=== PATIENT | male | born 1950 | race Caucasian/White ===

== ENCOUNTER 2021-02-18 13:32 | Inpatient (IN) | payer MEDICARE, SELFPAY ==
[~2021-02-18] VITALS: Ht 185.4 cm; Wt 82.0 kg
[2021-02-18] VITALS (8 sets, daily range): BP systolic 92–134; BP diastolic 50–82
[2021-02-18] MEDS ORDERED: HEPARIN SOD (PORCINE) 5000UNITS/ML 1ML VIAL/SYRINGE SC SCH (16:50)
[2021-02-18] MEDS ORDERED: NS 1,000 ML IV ONE (17:15)
--- NOTE | 2021-02-18 17:17 | HPEPDOC ---
General Date of Admission Feb 18, 2021 at 15:38 Date of Service: Feb 18, 2021 Chief Complaint The patient is a 70-year-old male admitted with a reason for visit of Sepsis. Source: Patient Exam Limitations: Mild cognitive slowing History of Present Illness Patient 70 years old male with past medical history of atrial fibrillation, CVA, right-sided weakness, hypothyroidism, NSTEMI was transferred from [facility] with hypotension and leukocytosis. Patient is very poor historian. Ac cording to records from the [facility] patient recently had pneumonia secondary to Covid, he developed CVA with right partial hemiplegia, also patient was found to have pulmonary emboli. The records which was sent for from the [facility] did not have any discharge summary or H&P, only very limited information for blood test and PT/OT evaluation. When I saw the patient his heart rate was 65, blood pressure was 100/50. He denied any fever or chills. Earlier today patient was found to have leukocytosis of 36 with lactic acid of 1.6 Home Medications Scheduled Apixaban (Eliquis) 5 Mg Tablet, 5 MG PO BID, (Reported) Aspirin (Aspirin) 81 Mg Tab.chew, 81 MG PO DAILY, (Reported) Atorvastatin Calcium (Atorvastatin Calcium) 40 Mg Tablet, 40 MG PO QHS, (Repor sam) Cholecalciferol (Vitamin D3) (Vitamin D3) 25 Mcg Tablet, 1,000 UNITS PO DAILY, (Reported) Levothyroxine Sodium (Levothyroxine Sodium) 75 Mcg Tablet, 75 MCG PO QAM, (Reported) Lisinopril (Lisinopril) 5 Mg Tablet, 5 MG PO QHS, (Reported) Loratadine (Loratadine) 10 Mg Tablet, 10 MG PO DAILY, (Reported) Metoprolol Succinate (Metoprolol Succinate) 25 Mg Tab.er.24h, 12.5 MG PO DAILY, (Reported) Pantoprazole Sodium (Pantoprazole Sodium) 40 Mg Tablet.dr, 40 MG PO DAILY, (Reported) Allergies Coded Allergies: Penicillins (Verified Allergy, Severe, THROAT CLOSES, 02/18/21) HAS RECEIVED CEPHALOSPORINS w/o PROBLEM Past Medical History Medical History atrial fibrillation, CVA, right-sided weakness, hypothyroidism, NSTEMI Family History I personally reviewed family history and found not pertinent Social History * Smoker: Denies Alcohol: Denies Drugs: denies A-FIB/CHADSVASC A-FIB History Current/History of A-Fib/PAF?: Yes Current PO Anticoag Therapy: Yes Review of Systems Constitutional: Reports: Fatigue; Denies: Chills, Fever Eyes: Denies: Pain ENT: Denies: Head Aches Skin: Denies: Rash Pulmonary: Reports: Dyspnea; Denies: Cough Cardiovascular: Denies: Chest Pain Gastrointestinal: Denies: Nausea, Vomiting Genitourinary: Denies: Dysuria Hematologic: Denies: Bruising Endocrine: Denies: Polydipsia Musculoskeletal: Denies: Neck Pain Neurological: Denies: Weakness Psych: Reports: Mood Normal, Memory Issues Physical Examination General Exam: Positive: Alert, Cooperative Eye Exam: Positive: PERRLA ENT Exam: Positive: Atraumatic Neck Exam: Positive: Supple; Negative: JVD Chest Exam: Positive: Clear to auscultation Heart Exam: Positive: Irregular Rhythm Telemetry: Positive: Atrial fibrillation Extremity Exam: Negative: Clubbing Skin Exam: Positive: Nl turgor and temperature Neuro Exam: Positive: Normal Gait Psych Exam: Negative: Memory Intact Vital Signs HR 65 Assessment/Plan Patient 70 years old male with past medical history of atrial fibrillation, CVA, right-sided weakness, hypothyroidism, NSTEMI was transferred from [facility] with hypotension and leukocytosis. Patient is very poor historian. According to records from the [facility] patient recently had pneumonia secondary to Covid, he developed CVA with right partial hemiplegia, also patient was found to have pulmonary emboli. The records which was sent for from the [facility] did not have any discharge summary or H&P, only very limited information for blood test and PT/OT evaluation. When I saw the patient his heart rate was 65, blood pressure was 100/50. He denied any fever or chills. Earlier today patient was found to have leukocytosis of 36 with lactic acid of 1.6 Problems (1) Sepsis Status: Acute Problem Text: Patient developed hypotension, with leukocytosis of 36 Unknown etiology CBC, BMP, lactic acid, procalcitonin We will start broad-spectrum antibiotics ceftriaxone and doxycycline CTA chest, CT abdomen/pelvis IV fluid (2) Pulmonary emboli Status: Chronic Problem Text: Patient has documented history of recent pulmonary emboli however I did not find in the records from previous hospital any details of this event Patient was on Eliquis and we continued it I will contact [facility] tomorrow in order to obtain more detailed records (3) Atrial fibrillation Status: Chronic Problem Text: Heart rate under control We continue oral targeted anticoagulation (4) Hypothyroidism Status: Chronic Problem Text: Continue levothyroxine (5) History of CVA (cerebrovascular accident) Status: Chronic Problem Text: Continue statin and aspirin PT/OT (6) History of coronary artery disease Status: Chronic Problem Text: Patient denied any chest pain, ordered EKG Continue metoprolol, aspirin and statin Plan / VTE VTE Prophylaxis Ordered?: Yes JON DUKES DO Feb 18, 2021 17:17
[2021-02-18] MEDS ORDERED: PANT40TA29 PO (17:26)
[2021-02-18] MEDS ORDERED: ELIQ5TAB PO (17:26)
[2021-02-18] MEDS ORDERED: LISI-898 PO (17:26)
[2021-02-18] MEDS ORDERED: LEVO75TA4 PO (17:26)
[2021-02-18] MEDS ORDERED: ATOR40TA75 PO (17:26)
[2021-02-18] MEDS ORDERED: D31000TA PO (17:26)
[2021-02-18] MEDS ORDERED: LORA-674 PO (17:26)
[2021-02-18] MEDS ORDERED: METO1TAB32 PO (17:26)
[2021-02-18] MEDS ORDERED: ASPI81CH33 PO (17:27)
[2021-02-18] MEDS ORDERED: HOME MED LIST COMPLETE! XX SCH (17:30)
[2021-02-18] MEDS ORDERED: ISOVUE-370 76% 100ML VIAL As Ordered ONE (18:05)
[2021-02-18 18:08] LABS: HEMATOCRIT 37.3 % (42.0-52.0); HEMOGLOBIN 11.6 g/dl (13.5-17.5); MEAN CORPUSCULAR HGB CONC 31.1 g/dl (32.0-36.5); MEAN CORPUSCULAR VOLUME 90.1 fl (80.0-96.0); PLATELET COUNT, AUTOMATED 287 10^3/uL (150-450); RED BLOOD COUNT 4.14 10^6/uL (4.30-6.10)
[2021-02-18 18:09] LABS: WHITE BLOOD COUNT 31.5 10^3/uL (4.0-10.0)
[2021-02-18 18:30] LABS: ALT/SGPT 22 U/L (12-78); BILIRUBIN,TOTAL 0.8 MG/DL (0.2-1.0); BLOOD UREA NITROGEN 10 MG/DL (7-18); CARBON DIOXIDE LEVEL 28 MEQ/L (21-32); CHLORIDE LEVEL 108 MEQ/L (98-107); CREATININE FOR GFR 0.65 MG/DL (0.70-1.30); GLOMERULAR FILTRATION RATE > 60.0 (>42); GLUCOSE, FASTING 89 MG/DL (70-100); POTASSIUM SERUM 3.9 MEQ/L (3.5-5.1); SODIUM LEVEL 139 MEQ/L (136-145); TOTAL PROTEIN 6.5 GM/DL (6.4-8.2)
--- NOTE | 2021-02-18 18:39 | REPVR ---
PROCEDURE INFORMATION: Exam: CTA Chest With Contrast Exam date and time: 02/18/2021 6:10 PM Age: 70 years old Clinical indication: Shortness of breath; Additional info: Pe TECHNIQUE: Imaging protocol: Computed tomographic angiography of the chest with contrast. 3D rendering (Not supervised by radiologist): MIP and/or 3D reconstructed images were created by the technologist. Radiation optimization: All CT scans at this facility use at least one of these dose optimization techniques: automated exposure control; mA and/or kV adjustment per patient size (includes targeted exams where dose is matched to clinical indication); or iterative reconstruction. Contrast material: ISOVUE 370; Contrast volume: 100 ml; Contrast route: INTRAVENOUS (IV); COMPARISON: No relevant prior studies available. FINDINGS: Pulmonary arteries: There is enlargement of the central pulmonary arteries, findings which can be associated with pulmonary arterial hypertension which should be correlated clinically. Contrast density within the pulmonary arteries is insufficient in order to exclude the presence of small peripheral pulmonary emboli. That said, there are no large or medium-sized vessel emboli visualized. Aorta: There is mild atherosclerosis in the thoracic aorta. There is no aortic dissection or aneurysm. Lungs: Bilateral coarse parenchymal opacities may represent atelectasis and/or chronic fibrotic change. No segmental or lobar infiltrates. Pleural spaces: Unremarkable. No pneumothorax. No pleural effusion. Heart: There is mild atherosclerotic calcification of the coronary arteries. Mediastinal space: A small to moderate sized hiatal hernia is present. Lymph nodes: Unremarkable. No enlarged lymph nodes. Spleen: Large hypodensities demonstrated in the lateral aspect of the spleen not fully evaluated on this examination dedicated to the thorax. Finding may represent a splenic infarct and should be correlated clinically. Bones/joints: Unremarkable. No acute fracture. Soft tissues: Unremarkable. IMPRESSION: 1. Bilateral coarse parenchymal opacities may represent atelectasis and/or chronic fibrotic change. No segmental or lobar infiltrates. 2. There is no aortic dissection or aneurysm. 3. There is enlargement of the central pulmonary arteries, findings which can be associated with pulmonary arterial hypertension which should be correlated clinically. 4. Contrast density within the pulmonary arteries is insufficient in order to exclude the presence of small peripheral pulmonary emboli. That said, there are no large or medium-sized vessel emboli visualized. 5. Large hypodensities demonstrated in the lateral aspect of the spleen not fully evaluated on this examination dedicated to the thorax. Finding may represent a splenic infarct and should be correlated clinically. 6. A small to moderate sized hiatal hernia is present. Electronically signed by: Moses Malhotra On 02/18/2021 18:39:14 PM
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
[2021-02-18] MEDS: NS 1,000 ML IV SCH (19:30)
[2021-02-18 19:40] LABS: INR 1.57; PROTHROMBIN TIME 19.2 SECONDS (12.7-14.5)
[2021-02-18 20:05] LABS: T UPTAKE 34 % (33-40); THYROXINE (T4) 11.7 UG/DL (4.5-12.0)
--- NOTE | 2021-02-18 20:36 | REPVR ---
PROCEDURE INFORMATION: Exam: US Abdomen; Limited Exam date and time: 02/18/2021 8:21 PM Age: 70 years old Clinical indication: Abnormal findings; Abnormal radiologic finding of the abdomen; Radiologic exam and body structure: CT; Additional info: Splenic infarct vs. Hematoma TECHNIQUE: Imaging protocol: US abdomen. Real time ultrasound with image documentation. Limited exam focused on the region of clinical interest. COMPARISON: CT ABD/PEL W/IV CONTRAST ONLY 02/18/2021 6:09 PM FINDINGS: Left kidney: Left kidney measures 10.1 x 4.9 x 4.4 cm. Spleen: Spleen measures 9.9 x 3.9 x 8.8 cm. There is a large perisplenic hypoechoic crescent-shaped focus measuring 7.2 x 2.6 x 9.1 cm. Differential includes a splenic infarct or a subcapsular fluid collection compressing the spleen. IMPRESSION: Spleen measures 9.9 x 3.9 x 8.8 cm. There is a large perisplenic hypoechoic crescent-shaped focus measuring 7.2 x 2.6 x 9.1 cm. Differential includes a splenic infarct or a subcapsular fluid collection compressing the spleen. Also to be considered is splenic neoplasm considered less likely based on appearance. Electronically signed by: Moses Malhotra On 02/18/2021 20:36:05 PM
[2021-02-18] MEDS: DOXYCYCLINE HYCLATE 100 MG in D5W MINI-BAG PLUS 100 ML IV SCH (21:26)
[2021-02-18] MEDS: ATORVASTATIN 20 MG TAB PO SCH (21:26)
[2021-02-18] MEDS: cefTRIAXone SOD 2 GM in D5W MINI-BAG PLUS 50 ML IV SCH (22:38)
[2021-02-18 22:40] LABS: HEMATOCRIT 35.5 % (42.0-52.0)
[2021-02-19] VITALS (11 sets, daily range): BP systolic 95–131; BP diastolic 52–76
[2021-02-19 04:59] LABS: HEMATOCRIT 34.5 % (42.0-52.0); HEMOGLOBIN 10.7 g/dl (13.5-17.5); MEAN CORPUSCULAR HEMOGLOBIN 27.6 pg (27.0-33.0); MEAN CORPUSCULAR VOLUME 89.1 fl (80.0-96.0); PLATELET COUNT, AUTOMATED 254 10^3/uL (150-450); RED BLOOD COUNT 3.87 10^6/uL (4.30-6.10); WHITE BLOOD COUNT 24.3 10^3/uL (4.0-10.0)
[2021-02-19] MEDS: LEVOTHYROXINE 75MCG TABLET (0.075MG) PO SCH (05:02)
[2021-02-19] MEDS: NS 1,000 ML IV SCH (05:03)
[2021-02-19 05:10] LABS: INR 1.41; PROTHROMBIN TIME 17.7 SECONDS (12.7-14.5)
[2021-02-19 05:29] LABS: ALBUMIN 1.6 GM/DL (3.2-5.2); ALT/SGPT 15 U/L (12-78); BILIRUBIN,TOTAL 0.5 MG/DL (0.2-1.0); BLOOD UREA NITROGEN 6 MG/DL (7-18); CALCIUM LEVEL 8.4 MG/DL (8.8-10.2); CARBON DIOXIDE LEVEL 28 MEQ/L (21-32); CHLORIDE LEVEL 109 MEQ/L (98-107); GLOMERULAR FILTRATION RATE > 60.0 (>42); GLUCOSE, FASTING 84 MG/DL (70-100); MAGNESIUM LEVEL 1.5 MG/DL (1.8-2.4); POTASSIUM SERUM 3.7 MEQ/L (3.5-5.1); SODIUM LEVEL 140 MEQ/L (136-145); TOTAL PROTEIN 6.3 GM/DL (6.4-8.2)
--- NOTE | 2021-02-19 07:08 | ECHO ---
ECHOCARDIOGRAM DATE OF PROCEDURE: 02/18/2021 Age: Gender: M Height: 185 cm Weight: 82 kg REFERRING PHYSICIAN: Dr. Navneet Penyn INDICATION: Acute stroke MEASUREMENTS: 2D Measurements: Aortic annulus: 1.9 cm Interventricular septum: 1.20 cm Posterior wall: 1.23 cm Left ventricle diastole: 4.7 cm Aortic root: 3.2 cm Left atrium: 3.7 cm Left atrial volume index: 28 Doppler Measurements: No aortic stenosis or regurgitation Aortic valve velocity: 123 cm/s LVOT velocity: 115 cm/s LVOT VTI: 21.1 cm No mitral regurgitation No mitral stenosis Mitral E velocity: 96.4 cm/s Mitral A velocity: 110 cm/s Mitral deceleration time: 251 m/s No tricuspid regurgitation No pulmonic regurgitation Pulmonary acceleration time: 160 ms MITRAL ANNULAR TISSUE DOPPLER E prime septal: 9.7 cm/s E prime lateral: 9.7 cm/s DESCRIPTION: Rhythm was sinus. The study was performed with the patient supine. This was a moderately technically difficult echocardiogram. No pericardial effusion. Bubble study was performed with a belly push. CONCLUSIONS: 1. Bubble study was negative for detection of right heart to left heart intracardiac shunting or intrapulmonary shunting; however, the bubble study was of relatively poor quality. 2. Mild concentric left ventricular hypertrophy. Normal regional left ventricle (LV) wall motion and wall thickening. Normal left ventricular (LV) systolic function. Left ventricular ejection fraction (LVEF) 65-70% by visual assessment. Grade 1 left ventricular (LV) diastolic dysfunction. 3. Moderate mitral annular calcification. No mitral regurgitation or stenosis. 4. Mild aortic valve sclerosis of A3-cuspid aortic valve. No aortic regurgitation. 5. Normal right ventricle size and systolic function. 6. Otherwise, normal-appearing echocardiogram and Doppler findings.
[2021-02-19] MEDS ORDERED: MAG SULF 1GM/100ML (MAG RUN) 1 GM in IV 1 EA IV ONE (09:00)
[2021-02-19] MEDS: PANTOPRAZOLE 40MG TAB (PROTONIX) PO SCH (09:08)
[2021-02-19] MEDS: LORATADINE 10 MG TAB PO SCH (09:08)
[2021-02-19] MEDS: VITAMIN D 1,000 INTERNATIONAL UNITS TABLET PO SCH (09:08)
[2021-02-19] MEDS: DOXYCYCLINE HYCLATE 100 MG in D5W MINI-BAG PLUS 100 ML IV SCH ×2 (09:08→21:01)
[2021-02-19] MEDS: ASPIRIN 81 MG CHEW TABLET PO SCH (09:08)
[2021-02-19] MEDS: METOPROLOL SUCC *XL* 12.5MG PER 1/2 TAB (TopROL *XL*) PO SCH (09:10)
[2021-02-19] MEDS ORDERED: NS 1,000 ML IV ONE (09:20)
--- NOTE | 2021-02-19 09:32 | CR.PDOC ---
General Date of Consultation: Feb 19, [address] Bello Reason for consultation. Splenic infarct HISTORY OF PRESENT ILLNESS: The patient is a 70-year-old male transferred from outside hospital to hospitalist with sepsis, hypotension and leukocytosis. When the patient was admitted yesterday, he had a difficult time providing history however according to records the patient had recently been hospitalized for pneumonia secondary to Covid, developed CVA with right partial hemiplegia and found to have pulmonary emboli. Imaging also included CT abdomen/pelvis indicating hypodensity at the lateral aspect of the spleen, possibly representing large splenic infarct or fluid collection. General surgery was co nsulted regarding splenic infarct. Currently, the patient denies any abdominal pain, distention or flank pain. The patient has been afebrile. Denies any chest pain or pleuritic pain. Denies nausea or vomiting. States bowel movements have been normal. Denies any urinary complaints. ALLERGIES: Please see below. HOME MEDICATIONS: Please see below. PMH/PSH: Atrial fibrillation, on Eliquis Recent history of pulmonary emboli CVA with right-sided weakness Hypothyroidism CAD/history of [place] Patient states history of splenic infarct SOCIAL HISTORY: Non-smoker REVIEW OF SYSTEMS: As noted in HPI otherwise 10 point review of systems negative. PHYSICAL EXAMINATION: VITAL SIGNS: Please see below. GENERAL APPEARANCE: Sitting up in bed, no acute distress HEENT: MMM RESPIRATORY: No wheezing. CARDIOVASCULAR: Irregularly irregular. no TTP flank or chest wall areas. ABDOMEN: Soft, nontender, nondistended. no flank pain. EXTREMITIES: No edema. LABORATORY DATA: WBC 24.3, this is decreased from 31.5 on admission. Hemoglobin 10.7 compared with 11.0 last evening. Platelets 254 Lactic acid last evening 1.3 UA positive WBC, blood, LE. UC pending BC x 2 pending. Imaging. CTA chest IMPRESSION: 1. Bilateral coarse parenchymal opacities may represent atelectasis and/or chronic fibrotic change. No segmental or lobar infiltrates. 2. There is no aortic dissection or aneurysm. 3. There is enlargement of the central pulmonary arteries, findings which can be associated with pulmonary arterial hypertension which should be correlated clinically. 4. Contrast density within the pulmonary arteries is insufficient in order to exclude the presence of small peripheral pulmonary emboli. That said, there are no large or medium-sized vessel emboli visualized. 5. Large hypodensities demonstrated in the lateral aspect of the spleen not fully evaluated on this examination dedicated to the thorax. Finding may represent a splenic infarct and should be correlated clinically. 6. A small to moderate sized hiatal hernia is present. Electronically signed by: Moses Malhotra On 02/18/2021 18:39:[address] abdomen/pelvis IMPRESSION: 1. Large hypodensity demonstrated in the lateral aspect of the spleen. Finding may represent a large splenic infarct or subcapsular fluid collection. Neoplasm not excluded. Splenic parenchyma is not well opacified on this scan. 2. A small to moderate hiatal hernia is present. 3. Minimal perivesicular inflammatory changes. Clinical correlation to exclude cystitis suggested. Electronically signed by: Moses Malhotra On 02/18/2021 18:43:44 PM Abdominal ultrasound IMPRESSION: Spleen measures 9.9 x 3.9 x 8.8 cm. There is a large perisplenic hypoechoic crescent-shaped focus measuring 7.2 x 2.6 x 9.1 cm. Differential includes a splenic infarct or a subcapsular fluid collection compressing the spleen. Also to be considered is splenic neoplasm considered less likely based on appearance. Electronically signed by: Moses Malhotra On 02/18/2021 20:36:05 PM TTE pending. 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 The patient is reviewed and examined as per Dr. Bello this morning. The patient reports he previously had splenic infarct, was hospitalized at another location, however the patient cannot recall where. The patient states he has had imaging done at [facility] in [place] in the past. He cannot recall how long ago he had the splenic infarct. This correlates with the patient not reporting any pain or symptoms suggestive of acute splenic infarct. Nursing will discuss with the patient's family member and we will try to obtain prior records and/or imaging to confirm this. Dr Bello discussed with hospitalistVINICIO to restart anticoagulation. Regular diet. Continue to monitor Vital Signs/I&O Vital Signs Date Time Temp Pulse Resp B/P (MAP) Pulse Ox O2 Delivery O2 Flow Rate FiO2 02/19/21 08:00 98.2 81 18 101/52 (68) 96 Nasal Cannula 2.0 I&O- Last 24 Hours up to 6 AM 02/19/21 06:00 Intake Total 2200 ml Output Total 600 ml Balance 1600 ml Laboratory Data Labs 24H Laboratory Tests 2 02/18/21 17:21: Methicillin-Resist S.aureus DNA PCR NOT DETECTED 02/18/21 17:48: Nucleated Red Blood Cells % (auto) 0.0, Anion Gap 3L, Glomerular Filtration Rate > 60.0, Lactic Acid Level 2.2*H, Calcium Level 8.0L, Total Bilirubin 0.8, Aspartate Amino Transf (AST/SGOT) 36, Alanine Aminotransferase (ALT/SGPT) 22, Alkaline Phosphatase 76, Total Protein 6.5, Albumin 2.0L, Albumin/Globulin Ratio 0.4, Procalcitonin 0.33, Thyroid Stimulating Hormone (TSH) 4.060H, Free Thyrox ine Index 4.0H, Thyroxine (T4) 11.7, Triiodothyronine (T3) Uptake 34 02/18/21 19:15: Prothrombin Time 19.2H, Prothromb Time International Ratio 1.57 02/18/21 20:10: Urine Color YELLOW, Urine Appearance HAZY, Urine pH 6.0, Urine Specific [place] 1.015, Urine Protein NEGATIVE, Urine Glucose (UA) NEGATIVE, Urine Ketones NEGATIVE, Urine Blood 1+H, Urine Nitrite NEGATIVE, Urine Bilirubin NEGATIVE, Urine Urobilinogen 0.2, Urine Leukocyte Esterase 3+H, Urine WBC (Auto) 94H, Urine RBC (Auto) 5H, Urine Hyaline Casts (Auto) 0, Urine Bacteria (Auto) NEGATIVE, Urine Squamous Epithelial Cells 0, Urine Sperm (Auto) 02/18/21 22:28: Lactic Acid Followup at 4 Hours 1.3 02/19/21 04:49: Nucleated Red Blood Cells % (auto) 0.0, Prothrombin Time 17.7H, Prothromb Time International Ratio 1.41, Anion Gap 3L, Glomerular Filtration Rate > 60.0, Calcium Level 8.4L, Magnesium Level 1.5L, Total Bilirubin 0.5, Aspartate Amino Transf (AST/SGOT) 22, Alanine Aminotransferase (ALT/SGPT) 15, Alkaline Phosphatase 75, Total Protein 6.3L, Albumin 1.6L, Albumin/Globulin Ratio 0.3 CBC/BMP Laboratory Tests 02/18/21 17:48 02/18/21 22:28 02/19/21 04:49 Microbiology Microbiology 02/18/21 Urine Culture, Received Pending 02/18/21 Blood Culture, Received Pending 02/18/21 Blood Culture, Received Pending Allergies Coded Allergies: Penicillins (Verified Allergy, Severe, THROAT CLOSES, 02/18/21) HAS RECEIVED CEPHALOSPORINS w/o PROBLEM Home Medications Scheduled Apixaban (Eliquis) 5 Mg Tablet, 5 MG PO BID, (Reported) Aspirin (Aspirin) 81 Mg Tab.chew, 81 MG PO DAILY, (Reported) Atorvastatin Calcium (Atorvastatin Calcium) 40 Mg Tablet, 40 MG PO QHS, (Reported) Cholecalciferol (Vitamin D3) (Vitamin D3) 25 Mcg Tablet, 1,000 UNITS PO DAILY, (Reported) Levothyroxine Sodium (Levothyroxine Sodium) 75 Mcg Tablet, 75 MCG PO QAM, (Reported) Lisinopril (Lisinopril) 5 Mg Tablet, 5 MG PO QHS, (Reported) Loratadine (Loratadine) 10 Mg Tablet, 10 MG PO DAILY, (Reported) Metoprolol Succinate (Metoprolol Succinate) 25 Mg Tab.er.24h, 12.5 MG PO DAILY, (Reported) Pantoprazole Sodium (Pantoprazole Sodium) 40 Mg Tablet.dr, 40 MG PO DAILY, (Reported) Merle Barber Feb 19, 2021 09:03
--- NOTE | 2021-02-19 10:08 | ECGEPIP ---
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
[2021-02-19 11:12] LABS: HEMOGLOBIN 11.3 g/dl (13.5-17.5)
--- NOTE | 2021-02-19 11:49 | IPNPDOC ---
Text Note Date of Service The patient was seen on 02/19/21. NOTE Subjective: Patient stated that he is doing much better in the morning. He was alert, awake and oriented. He told me that he would like to eat. No fever or chills reported. I talked to his sister Ailin Teixeira [phone] and updated her Objective: GENERAL APPEARANCE: NAD HEENT: no scleral icterus, no JVD, EOMI CARDIOVASCULAR: Irregularly irregular LUNGS: CTA ABDOMEN: soft & not tender w palpation MUSCULOSKELETAL: no cyanosis, no swelling INTEGUMENT: no generalized pallor NEUROLOGICAL: cranial nerve function from 2-12 intact, follows commands, speech not dysarthric Assessment/Plan Patient 70 years old male with past medical history of atrial fibrillation, CVA, right-sided weakness, hypothyroidism, NSTEMI was transferred from [facility] with hypotension and leukocytosis. Patient is very poor historian. According to records from the [facility] patient recently had pneumonia secondary to Covid, he developed CVA with right partial hemiplegia, also patient was found to have pulmonary emboli. The records which was sent for from the [facility] did not have any discharge summary or H&P, only very limited information for blood test and PT/OT evaluation. When I saw the patient his heart rate was 65, blood pressure was 100/50. He denied any fever or chills. Earlier today patient was found to have leukocytosis of 36 with lactic acid of 1.6 Problems (1) Sepsis Resolved. Unknown etiology. Patient denied any cough, sputum, fever, chills, abdominal pain, diarrhea or dysuria. Await blood culture, urine culture UA showed pyuria, but patient does not have dysuria CT chest did not show any acute pulmonary infiltrate. CT abdomen and pelvis showed Large hypodensity demonstrated in the lateral aspect of the spleen. Finding may represent a large splenic infarct or subcapsular fluid collection. 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 There is question about timeline of this infarct. We will try to obtain the records from [facility] in [place] Continue broad-spectrum antibiotics empirically day 1 (2) Pulmonary emboli Patient has documented history of recent pulmonary emboli however I did not find in the records from previous hospital any details of this event Patient was on Eliquis and we continued it Await documentation from [facility] (3) Atrial fibrillation Heart rate under control We continue oral targeted anticoagulation Continue metoprolol (4) Hypothyroidism Continue levothyroxine (5) History of CVA (cerebrovascular accident) Continue statin and aspirin PT/OT (6) History of coronary artery disease Patient denied any chest pain, ordered EKG Continue metoprolol, aspirin and statin Splenic infarct We continue to monitor H&H and blood pressure No any signs of symptoms of acute bleeding. There is a question about timeline of it. Ultrasound showed There is a large perisplenic hypoechoic crescent-shaped focus measuring 7.2 x 2.6 x 9.1 cm. Differential includes a splenic infarct or a subcapsular fluid collection compressing the spleen. Also to be considered is splenic neoplasm considered less likely based on appearance. Surgical team consulted patient, no any indication for surgical intervention VS,Solomone, I+O VS, [place], I+O Laboratory Tests 02/18/21 17:48 02/18/21 22:28 02/19/21 04:49 02/19/21 10:55 Vital Signs Date Time Temp Pulse Resp B/P (MAP) Pulse Ox O2 Delivery O2 Flow Rate FiO2 02/19/21 09:15 92 Room Air 02/19/21 09:10 102 101/57 02/19/21 09:00 2.0 02/19/21 08:00 98.2 18 I&O- Last 24 Hours up to 6 AM 02/19/21 06:00 Intake Total 2200 ml Output Total 600 ml Balance 1600 ml JON DUKES DO Feb 19, 2021 11:48
[2021-02-19] MEDS: ACETAMINOPHEN TAB 650MG DOSE (2X325MG) PO PRN ×2 (13:40→21:01)
[2021-02-19 17:16] LABS: HEMATOCRIT 33.5 % (42.0-52.0); HEMOGLOBIN 10.3 g/dl (13.5-17.5)
[2021-02-19] MEDS: APIXABAN 5 MG TAB (ELIQUIS) PO SCH (21:00)
[2021-02-19] MEDS: ATORVASTATIN 20 MG TAB PO SCH (21:00)
[2021-02-19] MEDS: cefTRIAXone SOD 2 GM in D5W MINI-BAG PLUS 50 ML IV SCH (22:32)
[2021-02-19 23:28] LABS: HEMATOCRIT 32.4 % (42.0-52.0); HEMOGLOBIN 10.2 g/dl (13.5-17.5)
[2021-02-20] MEDS: LEVOTHYROXINE 75MCG TABLET (0.075MG) PO SCH (05:34)
[2021-02-20 05:50] VITALS: BP 132/77
[2021-02-20 06:42] LABS: HEMATOCRIT 35.1 % (42.0-52.0); HEMOGLOBIN 11.1 g/dl (13.5-17.5)
[2021-02-20 06:54] LABS: INR 1.41; PROTHROMBIN TIME 17.7 SECONDS (12.7-14.5)
[2021-02-20] MEDS: LORATADINE 10 MG TAB PO SCH (08:30)
[2021-02-20] MEDS: DOXYCYCLINE HYCLATE 100 MG in D5W MINI-BAG PLUS 100 ML IV SCH (08:30)
[2021-02-20] MEDS: APIXABAN 5 MG TAB (ELIQUIS) PO SCH ×2 (08:30→20:10)
[2021-02-20] MEDS: PANTOPRAZOLE 40MG TAB (PROTONIX) PO SCH (08:30)
[2021-02-20] MEDS: ASPIRIN 81 MG CHEW TABLET PO SCH (08:30)
[2021-02-20] MEDS: VITAMIN D 1,000 INTERNATIONAL UNITS TABLET PO SCH (08:30)
[2021-02-20] MEDS: METOPROLOL SUCC *XL* 12.5MG PER 1/2 TAB (TopROL *XL*) PO SCH (08:32)
[2021-02-20 08:51] LABS: BASO # 0.1 10^3/uL (0.0-0.2); BASO % 0.5 % (0.0-1.0); EOS # 0.7 10^3/uL (0.0-0.5); EOS % 3.5 % (0.0-3.0); HEMATOCRIT 35.4 % (42.0-52.0); LYMPH # 1.7 10^3/uL (1.5-5.0); LYMPH % 8.6 % (24.0-44.0); MEAN CORPUSCULAR HEMOGLOBIN 27.3 pg (27.0-33.0); MEAN CORPUSCULAR HGB CONC 31.1 g/dl (32.0-36.5); MEAN CORPUSCULAR VOLUME 87.8 fl (80.0-96.0); MONO # 0.9 10^3/uL (0.0-0.8); MONO % 4.5 % (2.0-8.0); NEUTROPHILS # 16.2 10^3/uL (1.5-8.5); NEUTROPHILS % 82.3 % (36.0-66.0); PLATELET COUNT, AUTOMATED 288 10^3/uL (150-450); RED BLOOD COUNT 4.03 10^6/uL (4.30-6.10); WHITE BLOOD COUNT 19.6 10^3/uL (4.0-10.0)
[2021-02-20 09:17] LABS: ALBUMIN 1.8 GM/DL (3.2-5.2); ALT/SGPT 16 U/L (12-78); BILIRUBIN,TOTAL 0.5 MG/DL (0.2-1.0); BLOOD UREA NITROGEN 5 MG/DL (7-18); CALCIUM LEVEL 8.6 MG/DL (8.8-10.2); CARBON DIOXIDE LEVEL 27 MEQ/L (21-32); CHLORIDE LEVEL 108 MEQ/L (98-107); CREATININE FOR GFR 0.44 MG/DL (0.70-1.30); GLOMERULAR FILTRATION RATE > 60.0 (>42); GLUCOSE, FASTING 83 MG/DL (70-100); POTASSIUM SERUM 3.8 MEQ/L (3.5-5.1); SODIUM LEVEL 142 MEQ/L (136-145); TOTAL PROTEIN 6.4 GM/DL (6.4-8.2)
[2021-02-20 11:16] LABS: HEMATOCRIT 39.4 % (42.0-52.0)
--- NOTE | 2021-02-20 13:37 | IPNPDOC ---
Text Note Date of Service The patient was seen on 02/20/21. NOTE Subjective: Patient stated that he feels better today. No fever or chills Objective: GENERAL APPEARANCE: NAD HEENT: no scleral icterus, no JVD, EOMI CARDIOVASCULAR: Irregularly irregular LUNGS: CTA ABDOMEN: soft & not tender w palpation MUSCULOSKELETAL: no cyanosis, no swelling INTEGUMENT: no generalized pallor NEUROLOGICAL: cranial nerve function from 2-12 intact, follows commands, speech not dysarthric Assessment/Plan Patient 70 years old male with past medical history of atrial fibrillation, CVA, right-sided weakness, hypothyroidism, NSTEMI was transferred from [facility] with hypotension and leukocytosis. Patient is very poor historian. According to records from the [facility] patient recently had pneumonia secondary to Covid, he developed CVA with right partial hemiplegia, also patient was found to have pulmonary emboli. The records which was sent for from the [facility] did not have any discharge summary or H&P, only very limited information for blood test and PT/OT evaluation. When I saw the patient his heart rate was 65, blood pressure was 100/50. He denied any fever or chills. Earlier today patient was found to have leukocytosis of 36 with lactic acid of 1.6 Problems (1) Sepsis Resolved. Unknown etiology. Patient denied any cough, sputum, fever, chills, abdominal pain, diarrhea or dysuria. blood culture, urine culture negative UA showed pyuria, but patient does not have dysuria CT chest did not show any acute pulmonary infiltrate. CT abdomen and pelvis showed Large hypodensity demonstrated in the lateral aspect of the spleen. Finding may represent a large splenic infarct or subcapsular fluid collection. 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 There is question about timeline of this infarct. We will try to obtain the records from [facility] in [place] Continue broad-spectrum antibiotics empirically day 2 Leukocytosis improved (2) Pulmonary emboli Patient has documented history of recent pulmonary emboli however I did not find in the records from previous hospital any details of this event Patient was on Eliquis and we continued it Await documentation from [facility] (3) Atrial fibrillation Heart rate under control We continue oral targeted anticoagulation Continue metoprolol (4) Hypothyroidism Continue levothyroxine (5) History of CVA (cerebrovascular accident) Continue statin and aspirin PT/OT (6) History of coronary artery disease Patient denied any chest pain, ordered EKG Continue metoprolol, aspirin and statin Splenic infarct We continue to monitor H&H and blood pressure No any signs of symptoms of acute bleeding. There is a question about timeline of it. Ultrasound showed There is a large perisplenic hypoechoic crescent-shaped focus measuring 7.2 x 2.6 x 9.1 cm. Differential includes a splenic infarct or a subca psular fluid collection compressing the spleen. Also to be considered is splenic neoplasm considered less likely based on appearance. Surgical team consulted patient, no any indication for surgical intervention We will continue to monitor level of hemoglobin. VS,Fishbone, I+O VS, Fishbone, I+O Laboratory Tests 02/19/21 16:50 02/19/21 23:20 02/20/21 06:20 02/20/21 08:28 02/20/21 10:59 Vital Signs Date Time Temp Pulse Resp B/P (MAP) Pulse Ox O2 Delivery O2 Flow Rate FiO2 02/20/21 08:32 87 136/73 02/20/21 05:50 98.6 16 93 Room Air 02/19/21 09:00 2.0 I&O- Last 24 Hours up to 6 AM 02/20/21 06:00 Intake Total 850 ml Output Total 1500 ml Balance -650 ml JON DUKES DO Feb 20, 2021 13:37
[2021-02-20 14:00] VITALS: BP 135/74
[2021-02-20 18:32] LABS: HEMATOCRIT 33.7 % (42.0-52.0); HEMOGLOBIN 10.8 g/dl (13.5-17.5)
[2021-02-20] MEDS: CEFEPIME HCL 1 GM in D5W MINI-BAG PLUS 50 ML IV SCH (18:42)
[2021-02-20] MEDS: ATORVASTATIN 20 MG TAB PO SCH (20:10)
[2021-02-20 22:00] VITALS: BP 140/79
[2021-02-21] MEDS: CEFEPIME HCL 1 GM in D5W MINI-BAG PLUS 50 ML IV SCH ×2 (05:49→18:42)
[2021-02-21] MEDS: LEVOTHYROXINE 75MCG TABLET (0.075MG) PO SCH (05:49)
[2021-02-21 06:00] VITALS: BP 102/74
[2021-02-21 06:55] LABS: BASO # 0.1 10^3/uL (0.0-0.2); BASO % 0.8 % (0.0-1.0); EOS # 0.7 10^3/uL (0.0-0.5); EOS % 5.5 % (0.0-3.0); HEMATOCRIT 32.9 % (42.0-52.0); HEMOGLOBIN 10.3 g/dl (13.5-17.5); LYMPH # 2.1 10^3/uL (1.5-5.0); MEAN CORPUSCULAR HEMOGLOBIN 27.3 pg (27.0-33.0); MEAN CORPUSCULAR HGB CONC 31.3 g/dl (32.0-36.5); MEAN CORPUSCULAR VOLUME 87.3 fl (80.0-96.0); MONO # 0.8 10^3/uL (0.0-0.8); MONO % 6.8 % (2.0-8.0); NEUTROPHILS # 8.1 10^3/uL (1.5-8.5); NEUTROPHILS % 67.7 % (36.0-66.0); PLATELET COUNT, AUTOMATED 323 10^3/uL (150-450); RED BLOOD COUNT 3.77 10^6/uL (4.30-6.10); WHITE BLOOD COUNT 11.9 10^3/uL (4.0-10.0)
[2021-02-21 07:05] LABS: INR 1.53; PROTHROMBIN TIME 18.8 SECONDS (12.7-14.5)
[2021-02-21 07:19] LABS: ALBUMIN 1.7 GM/DL (3.2-5.2); ALT/SGPT 14 U/L (12-78); BILIRUBIN,TOTAL 0.5 MG/DL (0.2-1.0); BLOOD UREA NITROGEN 4 MG/DL (7-18); CALCIUM LEVEL 8.2 MG/DL (8.8-10.2); CARBON DIOXIDE LEVEL 28 MEQ/L (21-32); CHLORIDE LEVEL 108 MEQ/L (98-107); CREATININE FOR GFR 0.45 MG/DL (0.70-1.30); GLOMERULAR FILTRATION RATE > 60.0 (>42); GLUCOSE, FASTING 92 MG/DL (70-100); MAGNESIUM LEVEL 1.8 MG/DL (1.8-2.4); POTASSIUM SERUM 3.6 MEQ/L (3.5-5.1); SODIUM LEVEL 142 MEQ/L (136-145); TOTAL PROTEIN 6.2 GM/DL (6.4-8.2)
[2021-02-21] MEDS: METOPROLOL SUCC *XL* 12.5MG PER 1/2 TAB (TopROL *XL*) PO SCH (09:00)
[2021-02-21] MEDS: ASPIRIN 81 MG CHEW TABLET PO SCH (09:40)
[2021-02-21] MEDS: APIXABAN 5 MG TAB (ELIQUIS) PO SCH ×2 (09:40→21:28)
[2021-02-21] MEDS: LORATADINE 10 MG TAB PO SCH (09:40)
[2021-02-21] MEDS: VITAMIN D 1,000 INTERNATIONAL UNITS TABLET PO SCH (09:40)
[2021-02-21] MEDS: PANTOPRAZOLE 40MG TAB (PROTONIX) PO SCH (09:40)
--- NOTE | 2021-02-21 12:37 | IPNPDOC ---
Text Note Date of Service The patient was seen on 02/21/21. NOTE Subjective: I received urine and blood result from the [facility]. [place] [employer]'s urine positive for Pseudomonas aeruginosa, blood culture positive for gram-negative rods. Patient does not have any acute events overnight no fever or chills Objective: GENERAL APPEARANCE: NAD HEENT: no scleral icterus, no JVD, EOMI CARDIOVASCULAR: Irregularly irregular LUNGS: CTA ABDOMEN: soft & not tender w palpation MUSCULOSKELETAL: no cyanosis, no swelling INTEGUMENT: no generalized pallor NEUROLOGICAL: cranial nerve function from 2-12 intact, follows commands, speech not dysarthric Assessment/Plan Patient 70 years old male with past medical history of atrial fibrillation, CVA, right-sided weakness, hypothyroidism, NSTEMI was transferred from [facility] with hypotension and leukocytosis. Patient is very poor historian. According to records from the [facility] patient recently had pneumonia secondary to Covid, he developed CVA with right partial hemiplegia, also patient was found to have pulmonary emboli. The records which was sent for from the [facility] did not have any discharge summary or H&P, only very limited information for blood test and PT/OT evaluation. When I saw the patient his heart rate was 65, blood pressure was 100/50. He denied any fever or chills. Earlier today patient was found to have leukocytosis of 36 with lactic acid of 1.6 Problems (1) Sepsis Resolved. Most likely secondary to urinary tract infection. blood culture, urine culture negative on admission Yesterday evening I obtained urine and blood result from the [facility], patient's urine positive for Pseudomonas aeruginosa, blood culture positive for gram-negative rods I changed antibiotics to cefepime IV. Day 3 of antibiotic therapy Leukocytosis improved (2) Pulmonary emboli Patient has documented history of recent pulmonary emboli however I did not find in the records from previous hospital any details of this event Patient was on Eliquis and we continued it (3) Atrial fibrillation Heart rate under control We continue oral targeted anticoagulation Continue metoprolol (4) Hypothyroidism Continue levothyroxine (5) History of CVA (cerebrovascular accident) Continue statin and aspirin PT/OT (6) History of coronary artery disease Patient denied any chest pain, ordered EKG Continue metoprolol, aspirin and statin Splenic infarct CT abdomen and pelvis showed Large hypodensity demonstrated in the lateral aspect of the spleen. Finding may represent a large splenic infarct or subcapsular fluid collection. 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 There is question about timeline of this infarct. We will try to obtain the records from [facility] in [place] No any signs of symptoms of acute bleeding. There is a question about timeline of it. Ultrasound showed There is a large perisplenic hypoechoic crescent-shaped focus measuring 7.2 x 2.6 x 9.1 cm. Differential includes a splenic infarct or a subcapsular fluid collection compressing the spleen. Also to be considered is splenic neoplasm considered less likely based on appearance. Surgical team consulted patient, no any indication for surgical intervention Hemoglobin been stable VS,Fishbone, I+O VS, Fishbone, I+O Laboratory Tests 02/20/21 17:56 02/21/21 06:27 02/21/21 06:28 Vital Signs Date Time Temp Pulse Resp B/P (MAP) Pulse Ox O2 Delivery O2 Flow Rate FiO2 02/21/21 09:00 81 106/73 02/21/21 06:00 98.6 18 92 Room Air 02/19/21 09:00 2.0 l I&O- Last 24 Hours up to 6 AM 02/21/21 06:00 Intake Total 530 ml Output Total 850 ml Balance -320 ml JON DUKES DO Feb 21, 2021 12:36
[2021-02-21 14:00] VITALS: BP 119/76
[2021-02-21] MEDS: ATORVASTATIN 20 MG TAB PO SCH (21:28)
[2021-02-21 22:00] VITALS: BP 135/75
[2021-02-22] MEDS: CEFEPIME HCL 1 GM in D5W MINI-BAG PLUS 50 ML IV SCH ×2 (05:42→18:30)
[2021-02-22] MEDS: LEVOTHYROXINE 75MCG TABLET (0.075MG) PO SCH (05:43)
[2021-02-22 06:00] VITALS: BP 98/69
[2021-02-22 07:07] LABS: BASO # 0.1 10^3/uL (0.0-0.2); BASO % 0.9 % (0.0-1.0); EOS # 0.7 10^3/uL (0.0-0.5); EOS % 7.6 % (0.0-3.0); HEMATOCRIT 35.9 % (42.0-52.0); HEMOGLOBIN 11.2 g/dl (13.5-17.5); LYMPH # 2.3 10^3/uL (1.5-5.0); LYMPH % 25.9 % (24.0-44.0); MEAN CORPUSCULAR HEMOGLOBIN 27.1 pg (27.0-33.0); MEAN CORPUSCULAR HGB CONC 31.2 g/dl (32.0-36.5); MEAN CORPUSCULAR VOLUME 86.7 fl (80.0-96.0); MONO # 0.8 10^3/uL (0.0-0.8); MONO % 8.7 % (2.0-8.0); NEUTROPHILS % 56.6 % (36.0-66.0); PLATELET COUNT, AUTOMATED 412 10^3/uL (150-450); RED BLOOD COUNT 4.14 10^6/uL (4.30-6.10); WHITE BLOOD COUNT 8.8 10^3/uL (4.0-10.0)
[2021-02-22 07:17] LABS: INR 1.53; PROTHROMBIN TIME 18.8 SECONDS (12.7-14.5)
[2021-02-22 07:29] LABS: ALBUMIN 1.9 GM/DL (3.2-5.2); ALT/SGPT 16 U/L (12-78); BILIRUBIN,TOTAL 0.6 MG/DL (0.2-1.0); BLOOD UREA NITROGEN 4 MG/DL (7-18); CALCIUM LEVEL 8.7 MG/DL (8.8-10.2); CARBON DIOXIDE LEVEL 30 MEQ/L (21-32); CHLORIDE LEVEL 106 MEQ/L (98-107); CREATININE FOR GFR 0.53 MG/DL (0.70-1.30); GLOMERULAR FILTRATION RATE > 60.0 (>42); GLUCOSE, FASTING 93 MG/DL (70-100); MAGNESIUM LEVEL 1.9 MG/DL (1.8-2.4); POTASSIUM SERUM 3.9 MEQ/L (3.5-5.1); SODIUM LEVEL 140 MEQ/L (136-145); TOTAL PROTEIN 6.7 GM/DL (6.4-8.2)
[2021-02-22 08:15] VITALS: BP_SYST 106; BP_DIAS 71; BP_DIAS 73
[2021-02-22] MEDS: PANTOPRAZOLE 40MG TAB (PROTONIX) PO SCH (09:09)
[2021-02-22] MEDS: METOPROLOL SUCC *XL* 12.5MG PER 1/2 TAB (TopROL *XL*) PO SCH (09:10)
[2021-02-22] MEDS: APIXABAN 5 MG TAB (ELIQUIS) PO SCH ×2 (09:11→20:03)
[2021-02-22] MEDS: ASPIRIN 81 MG CHEW TABLET PO SCH (09:11)
[2021-02-22] MEDS: LORATADINE 10 MG TAB PO SCH (09:11)
[2021-02-22] MEDS: VITAMIN D 1,000 INTERNATIONAL UNITS TABLET PO SCH (09:11)
--- NOTE | 2021-02-22 12:14 | IPNPDOC ---
Text Note Date of Service The patient was seen on 02/22/21. NOTE Subjective: No new acute events overnight. Objective: GENERAL APPEARANCE: NAD HEENT: no scleral icterus, no JVD, EOMI CARDIOVASCULAR: Irregularly irregular LUNGS: CTA ABDOMEN: soft & not tender w palpation MUSCULOSKELETAL: no cyanosis, no swelling INTEGUMENT: no generalized pallor NEUROLOGICAL: cranial nerve function from 2-12 intact, follows commands, speech not dysarthric Assessment/Plan Patient 70 years old male with past medical history of atrial fibrillation, CVA, right-sided weakness, hypothyroidism, NSTEMI was transferred from [facility] with hypotension and leukocytosis. Patient is very poor historian. According to records from the [facility] patient recently had pneumonia secondary to Covid, he developed CVA with right partial hemiplegia, also patient was found to have pulmonary emboli. The records which was sent for from the [facility] did not have any discharge summary or H&P, only very limited information for blood test and PT/OT evaluation. When I saw the patient his heart rate was 65, blood pressure was 100/50. He denied any fever or chills. Earlier today patient was found to have leukocytosis of 36 with lactic acid of 1.6 Problems (1) Sepsis Resolved. Most likely secondary to urinary tract infection. blood culture, urine culture negative on admission I obtained urine and blood result from the [facility], patient's urine positive for Pseudomonas aeruginosa, blood culture positive for gram-negative rods I changed antibiotics to cefepime IV. Day 3 of antibiotic therapy Leukocytosis resolved (2) Pulmonary emboli Patient has documented history of recent pulmonary emboli however I did not find in the records from previous hospital any details of this event Patient was on Eliquis and we continued it (3) Atrial fibrillation Heart rate under control We continue oral targeted anticoagulation Continue metoprolol (4) Hypothyroidism Continue levothyroxine (5) History of CVA (cerebrovascular accident) Continue statin and aspirin PT/OT (6) History of coronary artery disease Patient denied any chest pain, ordered EKG Continue metoprolol, aspirin and statin Splenic infarct CT abdomen and pelvis showed Large hypodensity demonstrated in the lateral aspect of the spleen. Finding may represent a large splenic infarct or subcapsular fluid collection. 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 There is question about timeline of this infarct. We will try to obtain the records from [facility] in [place] No any signs of symptoms of acute bleeding. There is a question about timeline of it. Ultrasound showed There is a large perisplenic hypoechoic crescent-shaped focus measuring 7.2 x 2.6 x 9.1 cm. Differential includes a splenic infarct or a s ubcapsular fluid collection compressing the spleen. Also to be considered is splenic neoplasm considered less likely based on appearance. Surgical team consulted patient, no any indication for surgical intervention Hemoglobin been stable Deconditioning PT/OT Acute rehab after discharge VS,Solomone, I+O VS, Solomone, I+O Laboratory Tests 02/22/21 06:22 Vital Signs Date Time Temp Pulse Resp B/P (MAP) Pulse Ox O2 Delivery O2 Flow Rate FiO2 02/22/21 09:10 84 119/74 02/22/21 06:00 98.3 18 90 02/21/21 22:00 Room Air 02/19/21 09:00 2.0 I&O- Last 24 Hours up to 6 AM 02/22/21 06:00 Intake Total 600 ml Output Total 1300 ml Balance -700 ml JON DUKES DO Feb 22, 2021 12:14
[2021-02-22 14:00] VITALS: BP 124/75
[2021-02-22] MEDS: ATORVASTATIN 20 MG TAB PO SCH (20:03)
[2021-02-22 22:00] VITALS: BP 132/74
[2021-02-23] MEDS: ACETAMINOPHEN TAB 650MG DOSE (2X325MG) PO PRN (02:21)
[2021-02-23] MEDS: LEVOTHYROXINE 75MCG TABLET (0.075MG) PO SCH (05:47)
[2021-02-23] MEDS: CEFEPIME HCL 1 GM in D5W MINI-BAG PLUS 50 ML IV SCH ×2 (05:47→18:14)
[2021-02-23 06:20] VITALS: BP 112/71
[2021-02-23 06:33] LABS: BASO # 0.1 10^3/uL (0.0-0.2); BASO % 0.9 % (0.0-1.0); EOS # 0.8 10^3/uL (0.0-0.5); EOS % 7.5 % (0.0-3.0); HEMATOCRIT 36.6 % (42.0-52.0); HEMOGLOBIN 11.5 g/dl (13.5-17.5); LYMPH # 2.9 10^3/uL (1.5-5.0); LYMPH % 28.9 % (24.0-44.0); MEAN CORPUSCULAR HEMOGLOBIN 27.3 pg (27.0-33.0); MEAN CORPUSCULAR HGB CONC 31.4 g/dl (32.0-36.5); MEAN CORPUSCULAR VOLUME 86.7 fl (80.0-96.0); NEUTROPHILS # 5.2 10^3/uL (1.5-8.5); NEUTROPHILS % 52.1 % (36.0-66.0); PLATELET COUNT, AUTOMATED 465 10^3/uL (150-450); RED BLOOD COUNT 4.22 10^6/uL (4.30-6.10)
[2021-02-23 06:49] LABS: INR 1.52; PROTHROMBIN TIME 18.7 SECONDS (12.7-14.5)
[2021-02-23 07:05] LABS: ALBUMIN 2.1 GM/DL (3.2-5.2); ALT/SGPT 17 U/L (12-78); BILIRUBIN,TOTAL 0.5 MG/DL (0.2-1.0); BLOOD UREA NITROGEN 8 MG/DL (7-18); CALCIUM LEVEL 8.9 MG/DL (8.8-10.2); CARBON DIOXIDE LEVEL 29 MEQ/L (21-32); CHLORIDE LEVEL 105 MEQ/L (98-107); CREATININE FOR GFR 0.54 MG/DL (0.70-1.30); GLOMERULAR FILTRATION RATE > 60.0 (>42); GLUCOSE, FASTING 70 MG/DL (70-100); MAGNESIUM LEVEL 2.1 MG/DL (1.8-2.4); SODIUM LEVEL 140 MEQ/L (136-145); TOTAL PROTEIN 6.9 GM/DL (6.4-8.2)
[2021-02-23] MEDS: VITAMIN D 1,000 INTERNATIONAL UNITS TABLET PO SCH (08:38)
[2021-02-23 08:39] VITALS: BP 110/68
[2021-02-23] MEDS: METOPROLOL SUCC *XL* 12.5MG PER 1/2 TAB (TopROL *XL*) PO SCH (08:39)
[2021-02-23] MEDS: LORATADINE 10 MG TAB PO SCH (08:39)
[2021-02-23] MEDS: ASPIRIN 81 MG CHEW TABLET PO SCH (08:39)
[2021-02-23] MEDS: APIXABAN 5 MG TAB (ELIQUIS) PO SCH (08:39)
[2021-02-23] MEDS: PANTOPRAZOLE 40MG TAB (PROTONIX) PO SCH (08:39)
[2021-02-23] MEDS ORDERED: LEVO750T13 PO (10:44)
--- NOTE | 2021-02-23 12:49 | DS.PDOC ---
Discharge Summary General Date of Admission Feb 18, 2021 at 15:38 Date of Discharge 02/23/21 Discharge Summary PROCEDURES PERFORMED DURING STAY: [None]. ADMITTING DIAGNOSES: Sepsis Pulmonary emboli Atrial fibrillation Hypothyroidism History of CVA (cerebrovascular accident) History of coronary artery disease Splenic infarct Deconditioning DISCHARGE DIAGNOSES: Sepsis Pulmonary emboli Atrial fibrillation Hypothyroidism History of CVA (cerebrovascular accident) History of coronary artery disease Splenic infarct Deconditioning COMPLICATIONS/CHIEF COMPLAINT: Sepsis. HISTORY OF PRESENT ILLNESS: Patient 70 years old male with past medical history of atrial fibrillation, CVA, right-sided weakness, hypothyroidism, NSTEMI was transferred from [facility] with hypotension and leukocytosis. Patient is very poor historian. According to records from the [facility] patient recently had pneumonia secondary to Covid, he developed CVA with right partial hemiplegia, also patient was found to have pulmonary emboli. The records which was sent for from the [facility] did not have any discharge summary or H&P, only very limited information for blood test and PT/OT evaluation. When I saw the patient his heart rate was 65, blood pressure was 100/50. He denied any fever or chills. Earlier today patient was found to have leukocytosis of 36 with lactic acid of 1.6 HOSPITAL COURSE: During the hospital stay the following issues addressed 1) Sepsis Resolved. Most likely secondary to urinary tract infection. blood culture, urine culture negative on admission I obtained urine and blood result from the [facility], patient's urine positive for Pseudomonas aeruginosa, blood culture positive for Pseudomonas aeruginosa Patient received treatment with cefepime, continue treatment with levofloxacin p.o. Leukocytosis resolved (2) Pulmonary emboli Patient has documented history of recent pulmonary emboli however I did not find in the records from previous hospital any details of this event Patient was on Eliquis and we continued it (3) Atrial fibrillation Heart rate under control We continue oral targeted anticoagulation Continue metoprolol (4) Hypothyroidism Continue levothyroxine (5) History of CVA (cerebrovascular accident) Continue statin and aspirin PT/OT (6) History of coronary artery disease Patient denied any chest pain, ordered EKG Patient received metoprolol, aspirin and statin Splenic infarct CT abdomen and pelvis showed Large hypodensity demonstrated in the lateral aspect of the spleen. Finding may represent a large splenic infarct or subcapsular fluid collection. 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 There is question about timeline of this infarct. We will try to obtain the records from [facility] in [place] No any signs of symptoms of acute bleeding. There is a question about timeline of it. Ultrasound showed There is a large perisplenic hypoechoic crescent-shaped focus measuring 7.2 x 2.6 x 9.1 cm. Differential includes a splenic infarct or a subcapsular fluid collection compressing the spleen. Also to be considered is splenic neoplasm considered less likely based on appearance. Surgical team consulted patient, no any indication for surgical intervention Hemoglobin been stable Deconditioning PT/OT Acute rehab after discharge DISCHARGE MEDICATIONS: Please see below. ALLERGIES: Please see below. PHYSICAL EXAMINATION ON DISCHARGE: VITAL SIGNS: Please see below. Objective: GENERAL APPEARANCE: NAD HEENT: no scleral icterus, no JVD, EOMI CARDIOVASCULAR: Irregularly irregular LUNGS: CTA ABDOMEN: soft & not tender w palpation MUSCULOSKELETAL: no cyanosis, no swelling INTEGUMENT: no generalized pallor NEUROLOGICAL: cranial nerve function from 2-12 intact, follows commands, speech not dysarthric LABORATORY DATA: Please see below. IMAGING: See above PROGNOSIS: Fair ACTIVITY: [As tolerated]. DIET: Regular DISPOSITION: ARU ITEMS TO FOLLOWUP ON ON OUTPATIENT: f/u with PCP DISCHARGE CONDITION: [Stable]. TIME SPENT ON DISCHARGE:40 minutes. Vital Signs/I&Os Vital Signs Date Time Temp Pulse Resp B/P (MAP) Pulse Ox O2 Delivery O2 Flow Rate FiO2 02/23/21 08:39 88 110/68 02/23/21 06:20 98.0 14 90 Room Air 02/19/21 09:00 2.0 I&O- Last 24 Hours up to 6 AM 02/23/21 06:00 Intake Total 250 ml Output Total 1040 ml Balance -790 ml Laboratory Data Labs 24H Laboratory Tests 2 02/23/21 06:00: Immature Granulocyte % (Auto) 0.6, Neutrophils (%) (Auto) 52.1, Lymphocytes (%) (Auto) 28.9, Monocytes (%) (Auto) 10.0H, Eosinophils (%) (Auto) 7.5H, Basophils (%) (Auto) 0.9, Neutrophils # (Auto) 5.2, Lymphocytes # (Auto) 2.9, Monocytes # (Auto) 1.0H, Eosinophils # (Auto) 0.8H, Basophils # (Auto) 0.1, Nucleated Red Blood Cells % (auto) 0.0, Prothrombin Time 18.7H, Prothromb Time International Ratio 1.52, Anion Gap 6L, Glomerular Filtration Rate > 60.0, Calcium Level 8.9, Magnesium Level 2.1, Total Bilirubin 0.5, Aspartate Amino Transf (AST/SGOT) 23, Alanine Aminotransferase (ALT/SGPT) 17, Alkaline Phosphatase 76, Total Protein 6.9, Albumin 2.1L, Albumin/Globulin Ratio 0.4 CBC/BMP Laboratory Tests 02/23/21 06:00 Microbiology Microbiology 02/18/21 Urine Culture - Final, Complete 02/18/21 Blood Culture - Preliminary, Resulted No Growth after 72 hours. All specime... 02/18/21 Blood Culture - Preliminary, Resulted No Growth after 72 hours. All specime... Discharge Medications Scheduled Apixaban (Eliquis) 5 Mg Tablet, 5 MG PO BID, (Reported) Aspirin (Aspirin) 81 Mg Tab.chew, 81 MG PO DAILY, (Reported) Atorvastatin Calcium (Atorvastatin Calcium) 40 Mg Tablet, 40 MG PO QHS, (Reported) Cholecalciferol (Vitamin D3) (Vitamin D3) 25 Mcg Tablet, 1,000 UNITS PO DAILY, (Reported) Levofloxacin (Levofloxacin) 750 Mg Tablet, 1 TAB PO DAILY Levothyroxine Sodium (Levothyroxine Sodium) 75 Mcg Tablet, 75 MCG PO QAM, ( Reported) Lisinopril (Lisinopril) 5 Mg Tablet, 5 MG PO QHS, (Reported) Loratadine (Loratadine) 10 Mg Tablet, 10 MG PO DAILY, (Reported) Metoprolol Succinate (Metoprolol Succinate) 25 Mg Tab.er.24h, 12.5 MG PO DAILY, (Reported) Pantoprazole Sodium (Pantoprazole Sodium) 40 Mg Tablet.dr, 40 MG PO DAILY, (Reported) Allergies Coded Allergies: Penicillins (Verified Allergy, Severe, THROAT CLOSES, 02/18/21) HAS RECEIVED CEPHALOSPORINS w/o PROBLEM JON DUKES DO Feb 23, 2021 12:49
[2021-02-23 14:00] VITALS: BP 128/76
== END 2021-02-23 18:55 | DRG 872 ==
LOC: M ICU 15:38 → M MSPAV 02-19 12:12
PROVIDERS: ADMIT Family Medicine; ATTEND Internal Medicine
DX: A41.9 Sepsis, unspecified organism (principal); I69.351 Hemiplegia and hemiparesis following cerebral infarction affecting right dominant side; N39.0 Urinary tract infection, site not specified; I48.91 Unspecified atrial fibrillation; E03.9 Hypothyroidism, unspecified; B96.5 Pseudomonas (aeruginosa) (mallei) (pseudomallei) as the cause of diseases classified elsewhere; I25.2 Old myocardial infarction; D73.5 Infarction of spleen; Z66 Do not resuscitate; Z86.16 Personal history of COVID-19; Z79.01 Long term (current) use of anticoagulants; Z79.82 Long term (current) use of aspirin; Z79.899 Other long term (current) drug therapy; Z88.0 Allergy status to penicillin; Z86.711 Personal history of pulmonary embolism

== ENCOUNTER 2021-02-23 13:12 | Inpatient (IN) | payer MEDICARE ==
[~2021-02-23] VITALS: Ht 185.4 cm; Wt 69.9 kg
[~2021-02-23 13:12] MED LIST: ASPI81CH33 PO; ATOR40TA75 PO; D31000TA PO; ELIQ5TAB PO; LEVO750T13 PO; LEVO75TA4 PO; LISI5TAB11 PO; LORA-674 PO; METO1TAB32 PO; PANT40TA29 PO
[2021-02-23] MEDS ORDERED: BISACODYL 10 MG SUPP PR PRN (15:35)
[2021-02-23] MEDS ORDERED: ACETAMINOPHEN TAB 650MG DOSE (2X325MG) PO PRN (15:35)
[2021-02-23] MEDS: REMEDY PHYTOPLEX Z-GUARD PASTE 113GM TUBE (FROM STOREROOM PRODUCT) TOP SCH ×2 (16:00→21:11)
[2021-02-23 20:00] VITALS: BP 137/71
[2021-02-23] MEDS: SENNA 8.6 MG TAB (SENOKOT) PO SCH (21:00)
[2021-02-23] MEDS: DOCUSATE SODIUM 100MG CAPSULE PO SCH (21:00)
[2021-02-23] MEDS: APIXABAN 5 MG TAB (ELIQUIS) PO SCH (21:09)
[2021-02-23] MEDS: ATORVASTATIN 20 MG TAB PO SCH (21:09)
[2021-02-23] MEDS: LevoFLOXacin 750 MG TABLET PO SCH (21:09)
[2021-02-23 22:00] VITALS: BP 124/68
[2021-02-24] MEDS: LEVOTHYROXINE 75MCG TABLET (0.075MG) PO SCH (05:36)
[2021-02-24 06:02] VITALS: BP 129/71
[2021-02-24 07:10] LABS: BASO # 0.1 10^3/uL (0.0-0.2); EOS # 0.6 10^3/uL (0.0-0.5); EOS % 6.3 % (0.0-3.0); HEMATOCRIT 41.8 % (42.0-52.0); LYMPH # 2.1 10^3/uL (1.5-5.0); LYMPH % 21.8 % (24.0-44.0); MEAN CORPUSCULAR HEMOGLOBIN 27.3 pg (27.0-33.0); MEAN CORPUSCULAR HGB CONC 31.1 g/dl (32.0-36.5); MEAN CORPUSCULAR VOLUME 87.8 fl (80.0-96.0); NEUTROPHILS # 5.8 10^3/uL (1.5-8.5); NEUTROPHILS % 60.3 % (36.0-66.0); PLATELET COUNT, AUTOMATED 509 10^3/uL (150-450); RED BLOOD COUNT 4.76 10^6/uL (4.30-6.10); WHITE BLOOD COUNT 9.6 10^3/uL (4.0-10.0)
[2021-02-24 07:49] LABS: ALBUMIN 2.2 GM/DL (3.2-5.2); ALT/SGPT 16 U/L (12-78); BILIRUBIN,TOTAL 0.6 MG/DL (0.2-1.0); BLOOD UREA NITROGEN 7 MG/DL (7-18); CALCIUM LEVEL 9.6 MG/DL (8.8-10.2); CARBON DIOXIDE LEVEL 28 MEQ/L (21-32); CHLORIDE LEVEL 103 MEQ/L (98-107); CREATININE FOR GFR 0.62 MG/DL (0.70-1.30); GLOMERULAR FILTRATION RATE > 60.0 (>42); GLUCOSE, FASTING 67 MG/DL (70-100); POTASSIUM SERUM 3.8 MEQ/L (3.5-5.1); SODIUM LEVEL 139 MEQ/L (136-145); TOTAL PROTEIN 8.5 GM/DL (6.4-8.2)
[2021-02-24] MEDS: APIXABAN 5 MG TAB (ELIQUIS) PO SCH ×2 (08:48→20:55)
[2021-02-24] MEDS: LACTOBACILLUS ACIDOPHILUS CAP (BACID) PO SCH (08:48)
[2021-02-24] MEDS: ASPIRIN 81MG ENTERIC TABLET PO SCH (08:48)
[2021-02-24] MEDS: LORATADINE 10 MG TAB PO SCH (08:48)
[2021-02-24] MEDS: PANTOPRAZOLE 40MG TAB (PROTONIX) PO SCH (08:48)
[2021-02-24] MEDS: METOPROLOL SUCC *XL* 12.5MG PER 1/2 TAB (TopROL *XL*) PO SCH (08:48)
[2021-02-24] MEDS: VITAMIN D 1,000 INTERNATIONAL UNITS TABLET PO SCH (08:48)
[2021-02-24] MEDS: FLUoxetine 10 MG CAP PO SCH (08:48)
[2021-02-24] MEDS: DOCUSATE SODIUM 100MG CAPSULE PO SCH ×2 (08:48→20:55)
[2021-02-24] MEDS: REMEDY PHYTOPLEX Z-GUARD PASTE 113GM TUBE (FROM STOREROOM PRODUCT) TOP SCH ×3 (08:49→20:55)
[2021-02-24 14:00] VITALS: BP 133/75
[2021-02-24] MEDS: LevoFLOXacin 750 MG TABLET PO SCH (17:46)
[2021-02-24] MEDS: SENNA 8.6 MG TAB (SENOKOT) PO SCH (20:55)
[2021-02-24] MEDS: ATORVASTATIN 20 MG TAB PO SCH (20:55)
[2021-02-24 21:00] VITALS: BP 142/75
[2021-02-25] MEDS: LEVOTHYROXINE 75MCG TABLET (0.075MG) PO SCH (05:54)
[2021-02-25 06:00] VITALS: BP 118/71
[2021-02-25 06:37] LABS: BASO # 0.1 10^3/uL (0.0-0.2); BASO % 1.3 % (0.0-1.0); EOS # 0.6 10^3/uL (0.0-0.5); EOS % 6.6 % (0.0-3.0); HEMATOCRIT 39.2 % (42.0-52.0); HEMOGLOBIN 12.2 g/dl (13.5-17.5); LYMPH # 2.2 10^3/uL (1.5-5.0); LYMPH % 26.1 % (24.0-44.0); MEAN CORPUSCULAR HEMOGLOBIN 27.3 pg (27.0-33.0); MEAN CORPUSCULAR HGB CONC 31.1 g/dl (32.0-36.5); MEAN CORPUSCULAR VOLUME 87.7 fl (80.0-96.0); MONO % 11.4 % (2.0-8.0); NEUTROPHILS # 4.5 10^3/uL (1.5-8.5); NEUTROPHILS % 53.5 % (36.0-66.0); PLATELET COUNT, AUTOMATED 584 10^3/uL (150-450); RED BLOOD COUNT 4.47 10^6/uL (4.30-6.10); WHITE BLOOD COUNT 8.3 10^3/uL (4.0-10.0)
[2021-02-25 06:59] LABS: BLOOD UREA NITROGEN 9 MG/DL (7-18); CALCIUM LEVEL 9.3 MG/DL (8.8-10.2); CARBON DIOXIDE LEVEL 30 MEQ/L (21-32); CHLORIDE LEVEL 101 MEQ/L (98-107); CREATININE FOR GFR 0.67 MG/DL (0.70-1.30); GLOMERULAR FILTRATION RATE > 60.0 (>42); GLUCOSE, FASTING 71 MG/DL (70-100); POTASSIUM SERUM 4.2 MEQ/L (3.5-5.1); SODIUM LEVEL 137 MEQ/L (136-145)
[2021-02-25] MEDS: DOCUSATE SODIUM 100MG CAPSULE PO SCH ×2 (09:00→20:02)
[2021-02-25] MEDS: FLUoxetine 10 MG CAP PO SCH (10:12)
[2021-02-25] MEDS: APIXABAN 5 MG TAB (ELIQUIS) PO SCH ×2 (10:13→20:26)
[2021-02-25] MEDS: ASPIRIN 81MG ENTERIC TABLET PO SCH (10:13)
[2021-02-25] MEDS: METOPROLOL SUCC *XL* 12.5MG PER 1/2 TAB (TopROL *XL*) PO SCH (10:13)
[2021-02-25] MEDS: LACTOBACILLUS ACIDOPHILUS CAP (BACID) PO SCH (10:13)
[2021-02-25] MEDS: PANTOPRAZOLE 40MG TAB (PROTONIX) PO SCH (10:14)
[2021-02-25] MEDS: REMEDY PHYTOPLEX Z-GUARD PASTE 113GM TUBE (FROM STOREROOM PRODUCT) TOP SCH ×3 (10:14→20:26)
[2021-02-25] MEDS: VITAMIN D 1,000 INTERNATIONAL UNITS TABLET PO SCH (10:14)
[2021-02-25] MEDS: LORATADINE 10 MG TAB PO SCH (10:15)
[2021-02-25 14:00] VITALS: BP 132/64
[2021-02-25] MEDS: LevoFLOXacin 750 MG TABLET PO SCH (18:36)
[2021-02-25 20:00] VITALS: BP 139/65
[2021-02-25] MEDS: SENNA 8.6 MG TAB (SENOKOT) PO SCH (20:03)
[2021-02-25] MEDS: ATORVASTATIN 20 MG TAB PO SCH (20:26)
[2021-02-26] MEDS: LEVOTHYROXINE 75MCG TABLET (0.075MG) PO SCH (05:21)
[2021-02-26 06:00] VITALS: BP 119/59
[2021-02-26] MEDS: DOCUSATE SODIUM 100MG CAPSULE PO SCH ×3 (09:00→20:30)
[2021-02-26] MEDS: LORATADINE 10 MG TAB PO SCH (09:59)
[2021-02-26] MEDS: VITAMIN D 1,000 INTERNATIONAL UNITS TABLET PO SCH (09:59)
[2021-02-26] MEDS: ASPIRIN 81MG ENTERIC TABLET PO SCH (09:59)
[2021-02-26] MEDS: APIXABAN 5 MG TAB (ELIQUIS) PO SCH ×2 (09:59→20:31)
[2021-02-26] MEDS: LACTOBACILLUS ACIDOPHILUS CAP (BACID) PO SCH (09:59)
[2021-02-26] MEDS: PANTOPRAZOLE 40MG TAB (PROTONIX) PO SCH (10:00)
[2021-02-26] MEDS: FLUoxetine 10 MG CAP PO SCH (10:00)
[2021-02-26] MEDS: METOPROLOL SUCC *XL* 12.5MG PER 1/2 TAB (TopROL *XL*) PO SCH (10:00)
[2021-02-26] MEDS: REMEDY PHYTOPLEX Z-GUARD PASTE 113GM TUBE (FROM STOREROOM PRODUCT) TOP SCH ×3 (10:01→20:31)
[2021-02-26] MEDS ORDERED: ONDANSETRON 4 MG ORAL DISINTEGRATING TAB PO ONE (11:00)
[2021-02-26 12:58] VITALS: BP 124/75
[2021-02-26 20:00] VITALS: BP 144/65
[2021-02-26] MEDS: SENNA 8.6 MG TAB (SENOKOT) PO SCH (20:31)
[2021-02-26] MEDS: ATORVASTATIN 20 MG TAB PO SCH (20:31)
[2021-02-27] MEDS: LEVOTHYROXINE 75MCG TABLET (0.075MG) PO SCH (05:23)
[2021-02-27 06:00] VITALS: BP 112/58
[2021-02-27] MEDS: DOCUSATE SODIUM 100MG CAPSULE PO SCH ×2 (08:16→20:38)
[2021-02-27] MEDS: SIMETHICONE 80MG CHEW TAB PO SCH ×3 (09:00→20:38)
[2021-02-27 09:01] LABS: BASO # 0.1 10^3/uL (0.0-0.2); BASO % 1.3 % (0.0-1.0); EOS # 0.4 10^3/uL (0.0-0.5); EOS % 3.3 % (0.0-3.0); HEMATOCRIT 44.5 % (42.0-52.0); HEMOGLOBIN 13.6 g/dl (13.5-17.5); LYMPH # 3.4 10^3/uL (1.5-5.0); LYMPH % 31.9 % (24.0-44.0); MEAN CORPUSCULAR HEMOGLOBIN 27.2 pg (27.0-33.0); MEAN CORPUSCULAR HGB CONC 30.6 g/dl (32.0-36.5); MONO # 0.8 10^3/uL (0.0-0.8); MONO % 7.5 % (2.0-8.0); NEUTROPHILS % 55.4 % (36.0-66.0); PLATELET COUNT, AUTOMATED 682 10^3/uL (150-450); WHITE BLOOD COUNT 10.8 10^3/uL (4.0-10.0)
[2021-02-27 09:31] LABS: BLOOD UREA NITROGEN 12 MG/DL (7-18); CALCIUM LEVEL 10.1 MG/DL (8.8-10.2); CARBON DIOXIDE LEVEL 26 MEQ/L (21-32); CHLORIDE LEVEL 99 MEQ/L (98-107); CREATININE FOR GFR 0.71 MG/DL (0.70-1.30); GLOMERULAR FILTRATION RATE > 60.0 (>42); GLUCOSE, FASTING 83 MG/DL (70-100); POTASSIUM SERUM 4.5 MEQ/L (3.5-5.1); SODIUM LEVEL 136 MEQ/L (136-145)
[2021-02-27] MEDS: FLUoxetine 10 MG CAP PO SCH (10:04)
[2021-02-27] MEDS: PANTOPRAZOLE 40MG TAB (PROTONIX) PO SCH (10:04)
[2021-02-27] MEDS: APIXABAN 5 MG TAB (ELIQUIS) PO SCH ×2 (10:04→20:37)
[2021-02-27] MEDS: LACTOBACILLUS ACIDOPHILUS CAP (BACID) PO SCH (10:04)
[2021-02-27] MEDS: ASPIRIN 81MG ENTERIC TABLET PO SCH (10:04)
[2021-02-27] MEDS: VITAMIN D 1,000 INTERNATIONAL UNITS TABLET PO SCH (10:04)
[2021-02-27] MEDS: LORATADINE 10 MG TAB PO SCH (10:05)
[2021-02-27] MEDS: METOPROLOL SUCC *XL* 12.5MG PER 1/2 TAB (TopROL *XL*) PO SCH (10:06)
[2021-02-27] MEDS: REMEDY PHYTOPLEX Z-GUARD PASTE 113GM TUBE (FROM STOREROOM PRODUCT) TOP SCH ×3 (10:07→20:38)
[2021-02-27 14:00] VITALS: BP 122/58
[2021-02-27 20:00] VITALS: BP 126/70
[2021-02-27] MEDS: SENNA 8.6 MG TAB (SENOKOT) PO SCH (20:38)
[2021-02-27] MEDS: ATORVASTATIN 20 MG TAB PO SCH (20:38)
[2021-02-28] MEDS: LEVOTHYROXINE 75MCG TABLET (0.075MG) PO SCH (05:36)
[2021-02-28 06:00] VITALS: BP 141/85
[2021-02-28] MEDS: DOCUSATE SODIUM 100MG CAPSULE PO SCH ×2 (09:00→20:17)
[2021-02-28] MEDS: REMEDY PHYTOPLEX Z-GUARD PASTE 113GM TUBE (FROM STOREROOM PRODUCT) TOP SCH ×3 (09:00→20:18)
[2021-02-28] MEDS: ASPIRIN 81MG ENTERIC TABLET PO SCH (09:04)
[2021-02-28] MEDS: FLUoxetine 10 MG CAP PO SCH (09:04)
[2021-02-28] MEDS: LACTOBACILLUS ACIDOPHILUS CAP (BACID) PO SCH (09:04)
[2021-02-28] MEDS: APIXABAN 5 MG TAB (ELIQUIS) PO SCH ×2 (09:04→20:17)
[2021-02-28] MEDS: SIMETHICONE 80MG CHEW TAB PO SCH ×3 (09:04→20:17)
[2021-02-28] MEDS: PANTOPRAZOLE 40MG TAB (PROTONIX) PO SCH (09:04)
[2021-02-28] MEDS: VITAMIN D 1,000 INTERNATIONAL UNITS TABLET PO SCH (09:04)
[2021-02-28] MEDS: LORATADINE 10 MG TAB PO SCH (09:04)
[2021-02-28] MEDS: METOPROLOL SUCC *XL* 12.5MG PER 1/2 TAB (TopROL *XL*) PO SCH (09:04)
[2021-02-28 14:00] VITALS: BP 105/64
[2021-02-28 20:00] VITALS: BP 119/62
[2021-02-28] MEDS: ATORVASTATIN 20 MG TAB PO SCH (20:17)
[2021-02-28] MEDS: SENNA 8.6 MG TAB (SENOKOT) PO SCH (20:18)
[2021-03-01] MEDS: LEVOTHYROXINE 75MCG TABLET (0.075MG) PO SCH (05:26)
[2021-03-01 06:00] VITALS: BP 114/67
[2021-03-01] MEDS: LORATADINE 10 MG TAB PO SCH (08:54)
[2021-03-01] MEDS: SIMETHICONE 80MG CHEW TAB PO SCH ×3 (08:54→20:32)
[2021-03-01] MEDS: VITAMIN D 1,000 INTERNATIONAL UNITS TABLET PO SCH (08:54)
[2021-03-01] MEDS: METOPROLOL SUCC *XL* 12.5MG PER 1/2 TAB (TopROL *XL*) PO SCH (08:54)
[2021-03-01] MEDS: LACTOBACILLUS ACIDOPHILUS CAP (BACID) PO SCH (08:54)
[2021-03-01] MEDS: FLUoxetine 10 MG CAP PO SCH (08:54)
[2021-03-01] MEDS: APIXABAN 5 MG TAB (ELIQUIS) PO SCH ×2 (08:54→20:32)
[2021-03-01] MEDS: ASPIRIN 81MG ENTERIC TABLET PO SCH (08:54)
[2021-03-01] MEDS: PANTOPRAZOLE 40MG TAB (PROTONIX) PO SCH (08:54)
[2021-03-01] MEDS: REMEDY PHYTOPLEX Z-GUARD PASTE 113GM TUBE (FROM STOREROOM PRODUCT) TOP SCH ×3 (08:57→20:33)
[2021-03-01] MEDS: DOCUSATE SODIUM 100MG CAPSULE PO SCH ×2 (08:57→20:32)
[2021-03-01 14:00] VITALS: BP 111/63
[2021-03-01 20:00] VITALS: BP 116/57
[2021-03-01] MEDS: ATORVASTATIN 20 MG TAB PO SCH (20:32)
[2021-03-01] MEDS: SENNA 8.6 MG TAB (SENOKOT) PO SCH (20:32)
[2021-03-02] MEDS: LEVOTHYROXINE 75MCG TABLET (0.075MG) PO SCH (05:46)
[2021-03-02 06:00] VITALS: BP 122/58
[2021-03-02 06:10] LABS: BASO # 0.1 10^3/uL (0.0-0.2); BASO % 1.2 % (0.0-1.0); EOS # 0.4 10^3/uL (0.0-0.5); EOS % 4.5 % (0.0-3.0); HEMATOCRIT 40.9 % (42.0-52.0); HEMOGLOBIN 12.7 g/dl (13.5-17.5); LYMPH # 2.3 10^3/uL (1.5-5.0); MEAN CORPUSCULAR HGB CONC 31.1 g/dl (32.0-36.5); MEAN CORPUSCULAR VOLUME 86.8 fl (80.0-96.0); MONO # 0.8 10^3/uL (0.0-0.8); MONO % 8.2 % (2.0-8.0); NEUTROPHILS # 5.5 10^3/uL (1.5-8.5); NEUTROPHILS % 60.6 % (36.0-66.0); PLATELET COUNT, AUTOMATED 614 10^3/uL (150-450); RED BLOOD COUNT 4.71 10^6/uL (4.30-6.10); WHITE BLOOD COUNT 9.2 10^3/uL (4.0-10.0)
[2021-03-02 06:38] LABS: BLOOD UREA NITROGEN 9 MG/DL (7-18); CALCIUM LEVEL 9.4 MG/DL (8.8-10.2); CARBON DIOXIDE LEVEL 30 MEQ/L (21-32); CHLORIDE LEVEL 101 MEQ/L (98-107); CREATININE FOR GFR 0.62 MG/DL (0.70-1.30); GLOMERULAR FILTRATION RATE > 60.0 (>42); GLUCOSE, FASTING 79 MG/DL (70-100); SODIUM LEVEL 138 MEQ/L (136-145)
[2021-03-02] MEDS: VITAMIN D 1,000 INTERNATIONAL UNITS TABLET PO SCH (08:09)
[2021-03-02] MEDS: SIMETHICONE 80MG CHEW TAB PO SCH ×3 (08:09→20:14)
[2021-03-02] MEDS: LORATADINE 10 MG TAB PO SCH (08:09)
[2021-03-02] MEDS: ASPIRIN 81MG ENTERIC TABLET PO SCH (08:09)
[2021-03-02] MEDS: LACTOBACILLUS ACIDOPHILUS CAP (BACID) PO SCH (08:09)
[2021-03-02] MEDS: METOPROLOL SUCC *XL* 12.5MG PER 1/2 TAB (TopROL *XL*) PO SCH (08:09)
[2021-03-02] MEDS: APIXABAN 5 MG TAB (ELIQUIS) PO SCH ×2 (08:09→20:14)
[2021-03-02] MEDS: PANTOPRAZOLE 40MG TAB (PROTONIX) PO SCH (08:09)
[2021-03-02] MEDS: FLUoxetine 10 MG CAP PO SCH (08:10)
[2021-03-02] MEDS: DOCUSATE SODIUM 100MG CAPSULE PO SCH ×2 (08:10→20:08)
[2021-03-02] MEDS: REMEDY PHYTOPLEX Z-GUARD PASTE 113GM TUBE (FROM STOREROOM PRODUCT) TOP SCH ×3 (08:12→20:15)
[2021-03-02 14:00] VITALS: BP 135/72
[2021-03-02 20:00] VITALS: BP 138/65
[2021-03-02] MEDS: SENNA 8.6 MG TAB (SENOKOT) PO SCH (20:09)
[2021-03-02] MEDS: ATORVASTATIN 20 MG TAB PO SCH (20:14)
[2021-03-03] MEDS: LEVOTHYROXINE 75MCG TABLET (0.075MG) PO SCH (05:21)
[2021-03-03 06:00] VITALS: BP 133/63
[2021-03-03] MEDS: VITAMIN D 1,000 INTERNATIONAL UNITS TABLET PO SCH (08:45)
[2021-03-03] MEDS: LACTOBACILLUS ACIDOPHILUS CAP (BACID) PO SCH (08:45)
[2021-03-03] MEDS: FLUoxetine 10 MG CAP PO SCH (08:45)
[2021-03-03] MEDS: SIMETHICONE 80MG CHEW TAB PO SCH ×3 (08:45→20:13)
[2021-03-03] MEDS: APIXABAN 5 MG TAB (ELIQUIS) PO SCH ×2 (08:45→20:13)
[2021-03-03] MEDS: PANTOPRAZOLE 40MG TAB (PROTONIX) PO SCH (08:45)
[2021-03-03] MEDS: LORATADINE 10 MG TAB PO SCH (08:45)
[2021-03-03] MEDS: ASPIRIN 81MG ENTERIC TABLET PO SCH (08:45)
[2021-03-03] MEDS: METOPROLOL SUCC *XL* 12.5MG PER 1/2 TAB (TopROL *XL*) PO SCH (08:45)
[2021-03-03] MEDS: REMEDY PHYTOPLEX Z-GUARD PASTE 113GM TUBE (FROM STOREROOM PRODUCT) TOP SCH ×3 (08:46→20:13)
[2021-03-03] MEDS: DOCUSATE SODIUM 100MG CAPSULE PO SCH ×2 (08:49→20:13)
[2021-03-03 14:00] VITALS: BP 123/68
[2021-03-03 20:00] VITALS: BP 118/64
[2021-03-03] MEDS: SENNA 8.6 MG TAB (SENOKOT) PO SCH (20:13)
[2021-03-03] MEDS: ATORVASTATIN 20 MG TAB PO SCH (20:13)
[2021-03-04] MEDS: LEVOTHYROXINE 75MCG TABLET (0.075MG) PO SCH (05:30)
[2021-03-04 06:00] VITALS: BP 104/63
[2021-03-04 07:19] LABS: BASO # 0.1 10^3/uL (0.0-0.2); BASO % 1.3 % (0.0-1.0); EOS # 0.3 10^3/uL (0.0-0.5); EOS % 3.7 % (0.0-3.0); HEMATOCRIT 41.8 % (42.0-52.0); HEMOGLOBIN 13.2 g/dl (13.5-17.5); LYMPH # 2.6 10^3/uL (1.5-5.0); LYMPH % 33.3 % (24.0-44.0); MEAN CORPUSCULAR HEMOGLOBIN 27.4 pg (27.0-33.0); MEAN CORPUSCULAR HGB CONC 31.6 g/dl (32.0-36.5); MEAN CORPUSCULAR VOLUME 86.7 fl (80.0-96.0); MONO # 0.8 10^3/uL (0.0-0.8); MONO % 9.5 % (2.0-8.0); NEUTROPHILS # 4.1 10^3/uL (1.5-8.5); NEUTROPHILS % 51.8 % (36.0-66.0); PLATELET COUNT, AUTOMATED 559 10^3/uL (150-450); RED BLOOD COUNT 4.82 10^6/uL (4.30-6.10); WHITE BLOOD COUNT 7.9 10^3/uL (4.0-10.0)
[2021-03-04 07:47] LABS: BLOOD UREA NITROGEN 10 MG/DL (7-18); CALCIUM LEVEL 9.5 MG/DL (8.8-10.2); CARBON DIOXIDE LEVEL 28 MEQ/L (21-32); CHLORIDE LEVEL 101 MEQ/L (98-107); CREATININE FOR GFR 0.76 MG/DL (0.70-1.30); GLOMERULAR FILTRATION RATE > 60.0 (>42); GLUCOSE, FASTING 84 MG/DL (70-100); POTASSIUM SERUM 3.7 MEQ/L (3.5-5.1); SODIUM LEVEL 137 MEQ/L (136-145)
[2021-03-04] MEDS: ASPIRIN 81MG ENTERIC TABLET PO SCH (08:40)
[2021-03-04] MEDS: APIXABAN 5 MG TAB (ELIQUIS) PO SCH ×2 (08:40→20:58)
[2021-03-04] MEDS: FLUoxetine 10 MG CAP PO SCH (08:40)
[2021-03-04] MEDS: LACTOBACILLUS ACIDOPHILUS CAP (BACID) PO SCH (08:40)
[2021-03-04] MEDS: LORATADINE 10 MG TAB PO SCH (08:40)
[2021-03-04] MEDS: SIMETHICONE 80MG CHEW TAB PO SCH ×3 (08:40→20:59)
[2021-03-04] MEDS: VITAMIN D 1,000 INTERNATIONAL UNITS TABLET PO SCH (08:40)
[2021-03-04] MEDS: PANTOPRAZOLE 40MG TAB (PROTONIX) PO SCH (08:40)
[2021-03-04] MEDS: METOPROLOL SUCC *XL* 12.5MG PER 1/2 TAB (TopROL *XL*) PO SCH (08:41)
[2021-03-04] MEDS: DOCUSATE SODIUM 100MG CAPSULE PO SCH ×2 (08:41→20:59)
[2021-03-04] MEDS: REMEDY PHYTOPLEX Z-GUARD PASTE 113GM TUBE (FROM STOREROOM PRODUCT) TOP SCH ×3 (08:41→21:00)
[2021-03-04 14:00] VITALS: BP 117/66
[2021-03-04 20:07] VITALS: BP 135/77
[2021-03-04] MEDS: ATORVASTATIN 20 MG TAB PO SCH (20:59)
[2021-03-04] MEDS: SENNA 8.6 MG TAB (SENOKOT) PO SCH (21:00)
[2021-03-05] MEDS: LEVOTHYROXINE 75MCG TABLET (0.075MG) PO SCH (05:55)
[2021-03-05 06:33] VITALS: BP 114/70
[2021-03-05] MEDS: ASPIRIN 81MG ENTERIC TABLET PO SCH (08:21)
[2021-03-05] MEDS: METOPROLOL SUCC *XL* 12.5MG PER 1/2 TAB (TopROL *XL*) PO SCH (08:22)
[2021-03-05] MEDS: LORATADINE 10 MG TAB PO SCH (08:22)
[2021-03-05] MEDS: PANTOPRAZOLE 40MG TAB (PROTONIX) PO SCH (08:22)
[2021-03-05] MEDS: VITAMIN D 1,000 INTERNATIONAL UNITS TABLET PO SCH (08:22)
[2021-03-05] MEDS: LACTOBACILLUS ACIDOPHILUS CAP (BACID) PO SCH (08:22)
[2021-03-05] MEDS: SIMETHICONE 80MG CHEW TAB PO SCH ×3 (08:22→21:13)
[2021-03-05] MEDS: FLUoxetine 10 MG CAP PO SCH (08:22)
[2021-03-05] MEDS: APIXABAN 5 MG TAB (ELIQUIS) PO SCH ×2 (08:22→21:14)
[2021-03-05] MEDS: REMEDY PHYTOPLEX Z-GUARD PASTE 113GM TUBE (FROM STOREROOM PRODUCT) TOP SCH ×3 (08:23→21:15)
[2021-03-05] MEDS: DOCUSATE SODIUM 100MG CAPSULE PO SCH ×2 (08:23→21:00)
[2021-03-05 14:00] VITALS: BP 110/74
[2021-03-05 20:00] VITALS: BP 130/65
[2021-03-05] MEDS: SENNA 8.6 MG TAB (SENOKOT) PO SCH (21:00)
[2021-03-05] MEDS: ATORVASTATIN 20 MG TAB PO SCH (21:14)
[2021-03-06 05:07] VITALS: BP 110/69
[2021-03-06] MEDS: LEVOTHYROXINE 75MCG TABLET (0.075MG) PO SCH (05:19)
[2021-03-06 08:07] LABS: BASO # 0.1 10^3/uL (0.0-0.2); BASO % 1.5 % (0.0-1.0); EOS # 0.4 10^3/uL (0.0-0.5); EOS % 4.6 % (0.0-3.0); HEMOGLOBIN 13.2 g/dl (13.5-17.5); LYMPH # 2.1 10^3/uL (1.5-5.0); LYMPH % 27.3 % (24.0-44.0); MEAN CORPUSCULAR HEMOGLOBIN 27.6 pg (27.0-33.0); MEAN CORPUSCULAR HGB CONC 31.4 g/dl (32.0-36.5); MEAN CORPUSCULAR VOLUME 87.9 fl (80.0-96.0); MONO # 0.8 10^3/uL (0.0-0.8); MONO % 11.1 % (2.0-8.0); NEUTROPHILS # 4.1 10^3/uL (1.5-8.5); NEUTROPHILS % 54.8 % (36.0-66.0); PLATELET COUNT, AUTOMATED 495 10^3/uL (150-450); RED BLOOD COUNT 4.78 10^6/uL (4.30-6.10); WHITE BLOOD COUNT 7.5 10^3/uL (4.0-10.0)
[2021-03-06 08:26] LABS: BLOOD UREA NITROGEN 10 MG/DL (7-18); CALCIUM LEVEL 9.6 MG/DL (8.8-10.2); CARBON DIOXIDE LEVEL 30 MEQ/L (21-32); CHLORIDE LEVEL 100 MEQ/L (98-107); CREATININE FOR GFR 0.66 MG/DL (0.70-1.30); GLOMERULAR FILTRATION RATE > 60.0 (>42); GLUCOSE, FASTING 77 MG/DL (70-100); POTASSIUM SERUM 3.5 MEQ/L (3.5-5.1); SODIUM LEVEL 139 MEQ/L (136-145)
[2021-03-06] MEDS: DOCUSATE SODIUM 100MG CAPSULE PO SCH ×3 (09:00→20:59)
[2021-03-06] MEDS: REMEDY PHYTOPLEX Z-GUARD PASTE 113GM TUBE (FROM STOREROOM PRODUCT) TOP SCH ×3 (09:00→20:59)
[2021-03-06] MEDS: SIMETHICONE 80MG CHEW TAB PO SCH ×3 (09:42→20:58)
[2021-03-06] MEDS: ASPIRIN 81MG ENTERIC TABLET PO SCH (09:42)
[2021-03-06] MEDS: APIXABAN 5 MG TAB (ELIQUIS) PO SCH ×2 (09:42→20:59)
[2021-03-06] MEDS: PANTOPRAZOLE 40MG TAB (PROTONIX) PO SCH (09:43)
[2021-03-06] MEDS: LORATADINE 10 MG TAB PO SCH (09:43)
[2021-03-06] MEDS: VITAMIN D 1,000 INTERNATIONAL UNITS TABLET PO SCH (09:43)
[2021-03-06] MEDS: LACTOBACILLUS ACIDOPHILUS CAP (BACID) PO SCH (09:43)
[2021-03-06] MEDS: FLUoxetine 10 MG CAP PO SCH (09:43)
[2021-03-06] MEDS: METOPROLOL SUCC *XL* 12.5MG PER 1/2 TAB (TopROL *XL*) PO SCH (10:23)
[2021-03-06 14:00] VITALS: BP_SYST 108; BP_SYST 119; BP_DIAS 58; BP_DIAS 66
[2021-03-06 20:00] VITALS: BP 121/60
[2021-03-06] MEDS: SENNA 8.6 MG TAB (SENOKOT) PO SCH (20:59)
[2021-03-06] MEDS: ATORVASTATIN 20 MG TAB PO SCH (20:59)
[2021-03-07 06:00] VITALS: BP 125/67
[2021-03-07] MEDS: LEVOTHYROXINE 75MCG TABLET (0.075MG) PO SCH (06:11)
[2021-03-07] MEDS: FLUoxetine 10 MG CAP PO SCH (08:47)
[2021-03-07] MEDS: PANTOPRAZOLE 40MG TAB (PROTONIX) PO SCH (08:47)
[2021-03-07] MEDS: VITAMIN D 1,000 INTERNATIONAL UNITS TABLET PO SCH (08:47)
[2021-03-07] MEDS: METOPROLOL SUCC *XL* 12.5MG PER 1/2 TAB (TopROL *XL*) PO SCH (08:47)
[2021-03-07] MEDS: LACTOBACILLUS ACIDOPHILUS CAP (BACID) PO SCH (08:47)
[2021-03-07] MEDS: APIXABAN 5 MG TAB (ELIQUIS) PO SCH ×2 (08:47→20:25)
[2021-03-07] MEDS: LORATADINE 10 MG TAB PO SCH (08:47)
[2021-03-07] MEDS: REMEDY PHYTOPLEX Z-GUARD PASTE 113GM TUBE (FROM STOREROOM PRODUCT) TOP SCH ×3 (08:48→20:25)
[2021-03-07] MEDS: ASPIRIN 81MG ENTERIC TABLET PO SCH (08:48)
[2021-03-07] MEDS: DOCUSATE SODIUM 100MG CAPSULE PO SCH ×2 (08:48→20:25)
[2021-03-07] MEDS: SIMETHICONE 80MG CHEW TAB PO SCH ×3 (08:48→20:25)
[2021-03-07 14:00] VITALS: BP 108/66
[2021-03-07 20:00] VITALS: BP 108/63
[2021-03-07] MEDS: SENNA 8.6 MG TAB (SENOKOT) PO SCH (20:25)
[2021-03-07] MEDS: ATORVASTATIN 20 MG TAB PO SCH (20:25)
[2021-03-08] MEDS: LEVOTHYROXINE 75MCG TABLET (0.075MG) PO SCH (05:30)
[2021-03-08 06:00] VITALS: BP 109/68
[2021-03-08] MEDS: METOPROLOL SUCC *XL* 12.5MG PER 1/2 TAB (TopROL *XL*) PO SCH (07:18)
[2021-03-08] MEDS: DOCUSATE SODIUM 100MG CAPSULE PO SCH ×2 (08:09→20:38)
[2021-03-08] MEDS: FLUoxetine 10 MG CAP PO SCH (08:13)
[2021-03-08] MEDS: PANTOPRAZOLE 40MG TAB (PROTONIX) PO SCH (08:13)
[2021-03-08] MEDS: LACTOBACILLUS ACIDOPHILUS CAP (BACID) PO SCH (08:13)
[2021-03-08] MEDS: APIXABAN 5 MG TAB (ELIQUIS) PO SCH ×2 (08:14→20:37)
[2021-03-08] MEDS: LORATADINE 10 MG TAB PO SCH (08:14)
[2021-03-08] MEDS: REMEDY PHYTOPLEX Z-GUARD PASTE 113GM TUBE (FROM STOREROOM PRODUCT) TOP SCH ×3 (08:14→20:38)
[2021-03-08] MEDS: VITAMIN D 1,000 INTERNATIONAL UNITS TABLET PO SCH (08:14)
[2021-03-08] MEDS: ASPIRIN 81MG ENTERIC TABLET PO SCH (08:14)
[2021-03-08] MEDS: SIMETHICONE 80MG CHEW TAB PO SCH ×3 (08:14→20:37)
[2021-03-08 14:00] VITALS: BP 117/58
[2021-03-08] MEDS: ATORVASTATIN 20 MG TAB PO SCH (20:38)
[2021-03-08] MEDS: SENNA 8.6 MG TAB (SENOKOT) PO SCH (20:38)
[2021-03-08 22:20] VITALS: BP 119/63
[2021-03-09] MEDS: LEVOTHYROXINE 75MCG TABLET (0.075MG) PO SCH (05:29)
[2021-03-09 06:06] VITALS: BP 125/72
[2021-03-09 07:01] LABS: BASO # 0.1 10^3/uL (0.0-0.2); BASO % 1.6 % (0.0-1.0); EOS # 0.3 10^3/uL (0.0-0.5); EOS % 4.5 % (0.0-3.0); HEMATOCRIT 41.9 % (42.0-52.0); HEMOGLOBIN 13.3 g/dl (13.5-17.5); LYMPH # 1.9 10^3/uL (1.5-5.0); LYMPH % 25.2 % (24.0-44.0); MEAN CORPUSCULAR HEMOGLOBIN 27.8 pg (27.0-33.0); MEAN CORPUSCULAR HGB CONC 31.7 g/dl (32.0-36.5); MEAN CORPUSCULAR VOLUME 87.5 fl (80.0-96.0); MONO % 12.9 % (2.0-8.0); NEUTROPHILS # 4.1 10^3/uL (1.5-8.5); NEUTROPHILS % 55.4 % (36.0-66.0); PLATELET COUNT, AUTOMATED 413 10^3/uL (150-450); RED BLOOD COUNT 4.79 10^6/uL (4.30-6.10); WHITE BLOOD COUNT 7.4 10^3/uL (4.0-10.0)
[2021-03-09 07:27] LABS: BLOOD UREA NITROGEN 8 MG/DL (7-18); CALCIUM LEVEL 9.4 MG/DL (8.8-10.2); CARBON DIOXIDE LEVEL 30 MEQ/L (21-32); CHLORIDE LEVEL 99 MEQ/L (98-107); CREATININE FOR GFR 0.66 MG/DL (0.70-1.30); GLOMERULAR FILTRATION RATE > 60.0 (>42); GLUCOSE, FASTING 78 MG/DL (70-100); POTASSIUM SERUM 3.5 MEQ/L (3.5-5.1); SODIUM LEVEL 140 MEQ/L (136-145)
[2021-03-09] MEDS: APIXABAN 5 MG TAB (ELIQUIS) PO SCH ×2 (08:45→20:25)
[2021-03-09] MEDS: VITAMIN D 1,000 INTERNATIONAL UNITS TABLET PO SCH (08:45)
[2021-03-09] MEDS: LORATADINE 10 MG TAB PO SCH (08:45)
[2021-03-09] MEDS: METOPROLOL SUCC *XL* 12.5MG PER 1/2 TAB (TopROL *XL*) PO SCH (08:45)
[2021-03-09] MEDS: LACTOBACILLUS ACIDOPHILUS CAP (BACID) PO SCH (08:45)
[2021-03-09] MEDS: FLUoxetine 10 MG CAP PO SCH (08:45)
[2021-03-09] MEDS: SIMETHICONE 80MG CHEW TAB PO SCH ×3 (08:45→20:26)
[2021-03-09] MEDS: PANTOPRAZOLE 40MG TAB (PROTONIX) PO SCH (08:45)
[2021-03-09] MEDS: ASPIRIN 81MG ENTERIC TABLET PO SCH (08:45)
[2021-03-09] MEDS: DOCUSATE SODIUM 100MG CAPSULE PO SCH ×2 (08:45→20:25)
[2021-03-09] MEDS: REMEDY PHYTOPLEX Z-GUARD PASTE 113GM TUBE (FROM STOREROOM PRODUCT) TOP SCH ×3 (08:46→20:27)
[2021-03-09 14:00] VITALS: BP 137/60
[2021-03-09 20:00] VITALS: BP 141/78
[2021-03-09] MEDS: ATORVASTATIN 20 MG TAB PO SCH (20:26)
[2021-03-09] MEDS: SENNA 8.6 MG TAB (SENOKOT) PO SCH (20:27)
[2021-03-10] MEDS: LEVOTHYROXINE 75MCG TABLET (0.075MG) PO SCH (05:32)
[2021-03-10 06:00] VITALS: BP 120/73
[2021-03-10] MEDS ORDERED: HOME MED LIST COMPLETE! XX SCH (07:30)
[2021-03-10] MEDS: PANTOPRAZOLE 40MG TAB (PROTONIX) PO SCH (08:41)
[2021-03-10] MEDS: LACTOBACILLUS ACIDOPHILUS CAP (BACID) PO SCH (08:41)
[2021-03-10] MEDS: APIXABAN 5 MG TAB (ELIQUIS) PO SCH ×2 (08:41→20:48)
[2021-03-10] MEDS: VITAMIN D 1,000 INTERNATIONAL UNITS TABLET PO SCH (08:42)
[2021-03-10] MEDS: FLUoxetine 10 MG CAP PO SCH (08:42)
[2021-03-10] MEDS: LORATADINE 10 MG TAB PO SCH (08:42)
[2021-03-10] MEDS: ASPIRIN 81MG ENTERIC TABLET PO SCH (08:42)
[2021-03-10] MEDS: METOPROLOL SUCC *XL* 12.5MG PER 1/2 TAB (TopROL *XL*) PO SCH (08:42)
[2021-03-10] MEDS: SIMETHICONE 80MG CHEW TAB PO SCH ×3 (08:42→20:49)
[2021-03-10] MEDS: DOCUSATE SODIUM 100MG CAPSULE PO SCH ×2 (08:43→20:49)
[2021-03-10] MEDS: REMEDY PHYTOPLEX Z-GUARD PASTE 113GM TUBE (FROM STOREROOM PRODUCT) TOP SCH ×3 (08:43→20:49)
[2021-03-10 14:00] VITALS: BP 118/78
[2021-03-10] MEDS: ATORVASTATIN 20 MG TAB PO SCH (20:48)
[2021-03-10] MEDS: SENNA 8.6 MG TAB (SENOKOT) PO SCH (20:50)
[2021-03-11] MEDS: LEVOTHYROXINE 75MCG TABLET (0.075MG) PO SCH (05:43)
[2021-03-11 06:00] VITALS: BP 110/63
[2021-03-11 08:02] LABS: BASO # 0.2 10^3/uL (0.0-0.2); BASO % 2.6 % (0.0-1.0); EOS # 0.4 10^3/uL (0.0-0.5); EOS % 5.1 % (0.0-3.0); HEMATOCRIT 41.4 % (42.0-52.0); LYMPH # 1.9 10^3/uL (1.5-5.0); LYMPH % 26.1 % (24.0-44.0); MEAN CORPUSCULAR HEMOGLOBIN 27.4 pg (27.0-33.0); MEAN CORPUSCULAR HGB CONC 31.4 g/dl (32.0-36.5); MEAN CORPUSCULAR VOLUME 87.2 fl (80.0-96.0); NEUTROPHILS # 3.8 10^3/uL (1.5-8.5); NEUTROPHILS % 51.8 % (36.0-66.0); PLATELET COUNT, AUTOMATED 347 10^3/uL (150-450); RED BLOOD COUNT 4.75 10^6/uL (4.30-6.10); WHITE BLOOD COUNT 7.4 10^3/uL (4.0-10.0)
[2021-03-11 08:07] LABS: BLOOD UREA NITROGEN 10 MG/DL (7-18); CALCIUM LEVEL 9.3 MG/DL (8.8-10.2); CARBON DIOXIDE LEVEL 30 MEQ/L (21-32); CHLORIDE LEVEL 99 MEQ/L (98-107); CREATININE FOR GFR 0.71 MG/DL (0.70-1.30); GLOMERULAR FILTRATION RATE > 60.0 (>42); GLUCOSE, FASTING 76 MG/DL (70-100); POTASSIUM SERUM 3.1 MEQ/L (3.5-5.1); SODIUM LEVEL 139 MEQ/L (136-145)
[2021-03-11] MEDS: DOCUSATE SODIUM 100MG CAPSULE PO SCH ×2 (09:00→20:55)
[2021-03-11] MEDS: REMEDY PHYTOPLEX Z-GUARD PASTE 113GM TUBE (FROM STOREROOM PRODUCT) TOP SCH ×3 (09:00→20:55)
[2021-03-11] MEDS: FLUoxetine 10 MG CAP PO SCH (09:28)
[2021-03-11] MEDS: LACTOBACILLUS ACIDOPHILUS CAP (BACID) PO SCH (09:28)
[2021-03-11] MEDS: ASPIRIN 81MG ENTERIC TABLET PO SCH (09:28)
[2021-03-11] MEDS: VITAMIN D 1,000 INTERNATIONAL UNITS TABLET PO SCH (09:28)
[2021-03-11] MEDS: PANTOPRAZOLE 40MG TAB (PROTONIX) PO SCH (09:28)
[2021-03-11] MEDS: LORATADINE 10 MG TAB PO SCH (09:28)
[2021-03-11] MEDS: APIXABAN 5 MG TAB (ELIQUIS) PO SCH ×2 (09:28→20:55)
[2021-03-11] MEDS: METOPROLOL SUCC *XL* 12.5MG PER 1/2 TAB (TopROL *XL*) PO SCH (09:29)
[2021-03-11] MEDS: SIMETHICONE 80MG CHEW TAB PO SCH ×3 (09:29→20:55)
[2021-03-11] MEDS ORDERED: POTASSIUM CHLORIDE 10MEQ SR TABLET PO ONE ×2 (09:30→12:00)
[2021-03-11 14:00] VITALS: BP 120/67
[2021-03-11 20:00] VITALS: BP 115/65
[2021-03-11] MEDS: SENNA 8.6 MG TAB (SENOKOT) PO SCH (20:55)
[2021-03-11] MEDS: ATORVASTATIN 20 MG TAB PO SCH (20:55)
[2021-03-12] MEDS: LEVOTHYROXINE 75MCG TABLET (0.075MG) PO SCH (05:55)
[2021-03-12 06:00] VITALS: BP 121/68
[2021-03-12 07:33] LABS: BLOOD UREA NITROGEN 9 MG/DL (7-18); CALCIUM LEVEL 9.5 MG/DL (8.8-10.2); CARBON DIOXIDE LEVEL 30 MEQ/L (21-32); CHLORIDE LEVEL 99 MEQ/L (98-107); CREATININE FOR GFR 0.73 MG/DL (0.70-1.30); GLOMERULAR FILTRATION RATE > 60.0 (>42); GLUCOSE, FASTING 93 MG/DL (70-100); POTASSIUM SERUM 3.4 MEQ/L (3.5-5.1); SODIUM LEVEL 141 MEQ/L (136-145)
[2021-03-12] MEDS ORDERED: LORA-674 PO (08:51)
[2021-03-12] MEDS ORDERED: FLUO10CA18 PO (08:51)
[2021-03-12] MEDS ORDERED: D31000TA PO (08:51)
[2021-03-12] MEDS ORDERED: PANT40TA29 PO (08:51)
[2021-03-12] MEDS ORDERED: METO1TAB32 PO (08:51)
[2021-03-12] MEDS ORDERED: MI-A80CH PO (08:51)
[2021-03-12] MEDS ORDERED: ASPI81CH33 PO (08:51)
[2021-03-12] MEDS ORDERED: ATOR40TA75 PO (08:51)
[2021-03-12] MEDS ORDERED: ELIQ5TAB PO (08:51)
[2021-03-12] MEDS ORDERED: LEVO75TA4 PO (08:51)
[2021-03-12] MEDS: DOCUSATE SODIUM 100MG CAPSULE PO SCH (09:00)
[2021-03-12] MEDS: LORATADINE 10 MG TAB PO SCH (09:35)
[2021-03-12] MEDS: FLUoxetine 10 MG CAP PO SCH (09:35)
[2021-03-12] MEDS: VITAMIN D 1,000 INTERNATIONAL UNITS TABLET PO SCH (09:35)
[2021-03-12] MEDS: APIXABAN 5 MG TAB (ELIQUIS) PO SCH (09:35)
[2021-03-12] MEDS: ASPIRIN 81MG ENTERIC TABLET PO SCH (09:35)
[2021-03-12] MEDS: PANTOPRAZOLE 40MG TAB (PROTONIX) PO SCH (09:35)
[2021-03-12] MEDS: LACTOBACILLUS ACIDOPHILUS CAP (BACID) PO SCH (09:35)
[2021-03-12] MEDS: SIMETHICONE 80MG CHEW TAB PO SCH (09:35)
[2021-03-12 09:36] VITALS: BP 121/68
[2021-03-12] MEDS: METOPROLOL SUCC *XL* 12.5MG PER 1/2 TAB (TopROL *XL*) PO SCH (09:36)
[2021-03-12] MEDS: REMEDY PHYTOPLEX Z-GUARD PASTE 113GM TUBE (FROM STOREROOM PRODUCT) TOP SCH (09:36)
[2021-03-12] MEDS ORDERED: POTASSIUM CHLORIDE 10MEQ SR TABLET PO ONE (15:00)
== END 2021-03-12 15:12 | disposition home health service (06) | DRG 56 ==
LOC: M PM&R 19:17
PROVIDERS: ADMIT Physical Medicine & Rehabilitation; ATTEND Physical Medicine & Rehabilitation
DX: I69.351 Hemiplegia and hemiparesis following cerebral infarction affecting right dominant side (principal); I21.4 Non-ST elevation (NSTEMI) myocardial infarction; I50.32 Chronic diastolic (congestive) heart failure; I48.91 Unspecified atrial fibrillation; E03.9 Hypothyroidism, unspecified; Z74.09 Other reduced mobility; Z74.1 Need for assistance with personal care; M21.371 Foot drop, right foot; Z86.711 Personal history of pulmonary embolism; Z79.01 Long term (current) use of anticoagulants; Z79.82 Long term (current) use of aspirin; Z79.899 Other long term (current) drug therapy; Z88.0 Allergy status to penicillin; Z86.16 Personal history of COVID-19; I11.0 Hypertensive heart disease with heart failure; E78.5 Hyperlipidemia, unspecified